=== PATIENT | female | born 1950 | race Caucasian/White ===

== ENCOUNTER → 2017-08-16 | Outpatient (CLI) | payer BC, MEDICARE | END | disposition home or self-care (01) | LOC: ECHO 12:41 | DX: I47.1 Supraventricular tachycardia (principal); R06.02 Shortness of breath | CPT/HCPCS: 93017; 93350 ==

== ENCOUNTER 2017-11-22 17:22 | Emergency (ER) | payer BC, MEDICARE ==
[~2017-11-22] VITALS: Ht 157.5 cm; Wt 71.7 kg
[~2017-11-22 17:22] MED LIST: ASPI325T8 PO; MULT1TAB52 PO
[2017-11-22 17:30] VITALS: BP 159/91
[2017-11-22] MEDS ORDERED: ADENOSINE 6 MG/2 ML VIAL. IV ONE (17:31)
--- NOTE | 2017-11-22 17:47 | PHYS DOC ---
Past Medical History Past Medical History: Arrhythmia Past Surgical History: Tonsillectomy Additional Past Surgical Histo: CARDIAC ABLATION Alcohol Use: Occasionally Drug Use: None Adult General Chief Complaint Chief Complaint: RAPID HEART RATE HPI HPI Patient is a 67 year old female who presents to the ER for evaluation tachycardia. Patient reports onset approximately 1400 today after drinking some tea. Patient reports history of SVT. Patient reports that she is status post ablation at [facility] in September. Patient presents isn't unwell. Patient reports episode of SVT earlier this month that resolved with 2 doses of Deputy Toprol. Patient reports onset today of tachycardia similar to previous Nicole SVT. Patient reports that she took a dose of metoprolol at 1415 and 1445. Patient reports persistent tachycardia presents to the ER. Patient has any chest pain, dizziness, nausea, vomiting. feels exactly like previous episodes of SVT. Review of Systems Review of Systems Constitutional: Denies fever or chills [] Eyes: Denies change in visual acuity, redness, or eye pain [] HENT: Denies nasal congestion or sore throat [] Respiratory: Denies cough or shortness of breath [] Cardiovascular: No additional information not addressed in HPI [] GI: Denies abdominal pain, nausea, vomiting, bloody stools or diarrhea [] : Denies dysuria or hematuria [] Musculoskeletal: Denies back pain or joint pain [] Integument: Denies rash or skin lesions [] Neurologic: Denies headache, focal weakness or sensory changes [] Endocrine: Denies polyuria or polydipsia [] All other systems were reviewed and found to be within normal limits, except as documented in this note. Current Medications Current Medications Current Medications Medications (Trade) Dose Ordered Sig/Norberto Start Time Stop Time Status Last Admin Dose Admin Adenosine (Adenocard) 6 mg STK-MED ONCE 11/22/17 17:31 11/22/17 17:33 DC Allergies Allergies Allergies Coded Allergies Type Severity Reaction Last Updated Verified No Known Drug Allergies 03/14/15 No Physical Exam Physical Exam Constitutional: Obese no acute distress, non-toxic appearance. [] HENT: Normocephalic, atraumatic, Eyes: PERRLA, EOMI, conjunctiva normal, no discharge. [] Neck: Normal range of motion, no tenderness, supple, no stridor. [] Cardiovascular tachycardia, strong bilateral radial pulses. Lungs & Thorax: Bilateral breath sounds clear to auscultation [] [] Skin: Warm, dry, no erythema, no rash. [] Back: No tenderness, no CVA tenderness. [] Extremities: No tenderness, no cyanosis, no clubbing, ROM intact, no edema. [] Neurologic: Alert and oriented X 3, no focal deficits noted. [] Psychologic: Affect normal, judgement normal, mood normal. [] Current Patient Data Vital Signs Vital Signs Date Time Temp Pulse Resp B/P (MAP) Pulse Ox O2 Delivery O2 Flow Rate FiO2 11/22/17 17:30 98.8 151 18 159/91 (113) 97 Room Air 98.8 EKG EKG #1: SVT rhythm, heart rate 150. #2: Normal sinus rhythm, heart rate 86, no significant ST segment changes. Radiology/Procedures Radiology/Procedures [] Course & Med Decision Making Course & Med Decision Making Pertinent Labs and Imaging studies reviewed. (See chart for details) []Patient with spontaneous resolution of SVT almost immediately after IV placement. Suspect patient vagaled during IV placement resulting in conversion. Patient now asymptomatic and wishing to be discharged. Patient does not desire any labs or continued evaluation. Advised patient to call Dr. Hunter tomorrow for continued evaluation and follow-up. Also advised patient to call the physician that performed her ablation. Dragon Disclaimer Dragon Disclaimer This electronic medical record was generated, in whole or in part, using a voice recognition dictation system. Departure Departure Impression: Primary Impression: Supraventricular tachycardia Disposition: 01 HOME, SELF-CARE Condition: IMPROVED Referrals: FRANCHESCA KRAMER MD (PCP) VITOR HUNTER MD Patient Instructions: Supraventricular Tachycardia Additional Instructions: Thank you for coming to [facility]. Please repeat the attached handouts. Please follow-up with your primary care physician. Return to the ER if your symptoms worsen or you have any other concerns. Call your speech and language clinician for follow-up appointment tomorrow. DEEPAK OWENS DO Nov 22, 2017 17:47
--- NOTE | 2017-11-23 04:16 | EKG ---
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
--- NOTE | 2017-11-23 04:16 | EKG ---
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
== END 2017-11-22 17:55 | disposition home or self-care (01) ==
LOC: ER 17:22
DX: I47.1 Supraventricular tachycardia (principal); E66.9 Obesity, unspecified; Z68.28 Body mass index [BMI] 28.0-28.9, adult; Z90.89 Acquired absence of other organs
CPT/HCPCS: 93005; 99284

== ENCOUNTER → 2017-12-25 | Outpatient (CLI) | payer BC ==
--- NOTE | 2017-12-25 11:51 | CARD ---
MR#: [id number] Date of Study: 12/25/2017 Ordering Physician: VITOR HUNTER, Referring Physician: VITOR HUNTER, Tech: APPROVED REPORT PROCEDURE: LOOP RECORDER IMPLANTATION Details: After appropriate informed consent, the patient was prepped and draped in usual steril fashion. The l eft parasternal area was infiltrated with 20 ml of lidocaine. Next, a 15 blade was used to make a 0.5 inch incision. A subcutaneous tunnel was created and the loop recorder was then implanted without di fficulty. One suture was placed to close the skin. Steristrips were placed and the patient tolerated the procedure well. [facility] Loop recorder: Confirm SN: [id number] <Conclusion> Successful implantation of a [facility] Loop Recorder for atrial fibrillation burden assessment. Signed by : Vitor Hunter, Electronically Approved : 12/25/2017 11:49:56
== END | disposition home or self-care (01) ==
LOC: LINQ 10:15
PROVIDERS: ATTEND Internal Medicine Cardiovascular Disease
DX: I48.91 Unspecified atrial fibrillation (principal)
CPT/HCPCS: 33282; C1764

== ENCOUNTER 2018-07-09 18:47 | Inpatient (IN) | payer MEDICARE, BC ==
[~2018-07-09] VITALS: Ht 157.5 cm; Wt 71.7 kg
[2018-07-09] MEDS ORDERED: ASPIRIN 325 MG TABLET PO ONE (19:00)
--- NOTE | 2018-07-09 19:20 | PHYS DOC ---
Past Medical History Past Medical History: A-Fib, Arrhythmia Past Surgical History: Tonsillectomy Additional Past Surgical Histo: CARDIAC ABLATION Alcohol Use: Occasionally Drug Use: None Adult General Chief Complaint Chief Complaint: CHEST PAIN HPI HPI Patient is a 67 year old female who presents with chest discomfort. Patient states that she was laying down watching television when she developed tightness located in her midsternal area associated with shortness of breath. Patient states that the pain lasted about twenty minutes and then subsided. Patient rates the pain to be 8/10 and denies radiation. Patient states that she checked her blood pressure at home and it was 181/90 which was alarming for her. Patient reports taking 325mg Aspirin prior to arrival. Patient denies having any chest pain upon arrival to the ED. Patient denies ever having any similar chest pain in the past. Patient reports a mild headache locating on the left side of her head. Patient notes that she has been experiencing rightness in the right side of her neck and right ear for the past few days for which she has an appointment with her primary care physician tomorrow. Denies recent travel. No history of blood clots in herself, however, her mother had a pulmonary embolism. Review of Systems Review of Systems Constitutional: Denies fever or chills. Eyes: Denies change in visual acuity or eye pain. HENT: Denies nasal congestion or sore throat. Respiratory: Denies cough. Reports shortness of breath. Cardiovascular: Reports chest pain. Denies palpitations. GI: Denies abdominal pain, nausea, vomiting,or diarrhea : Denies dysuria or hematuria Musculoskeletal: Denies back pain or joint pain Integument: Denies rash or skin lesions Neurologic: Denies focal weakness or sensory changes Complete systems were reviewed and found to be within normal limits, except as documented in this note. Current Medications Current Medications Current Medications Medications (Trade) Dose Ordered Sig/Norberto Start Time Stop Time Status Last Admin Dose Admin Aspirin (Olivia Aspirin) 325 mg 1X ONCE 07/09/18 19:00 07/09/18 19:08 DC Allergies Allergies Allergies Coded Allergies Type Severity Reaction Last Updated Verified No Known Drug Allergies 03/14/15 No Physical Exam Physical Exam Constitutional: Well developed, well nourished, no acute distress, non-toxic appearance. HENT: Normocephalic, atraumatic, bilateral external ears normal, oropharynx moist. Eyes: PERRL, EOMI, conjunctiva without erythema. Neck: Normal range of motion, no tenderness, supple. Cardiovascular:Heart rate regular rhythm, no murmur. Lungs & Thorax: Bilateral breath sounds clear to auscultation. Abdomen: Soft, no tenderness on palpation. Skin: Warm, dry, no rash. Back: No midline tenderness, no CVA tenderness. Extremities: No tenderness, ROM intact, no lower extremity edema. Neurologic: Alert and oriented X 3, normal motor function, normal sensory function, no focal deficits noted. Psychologic: Affect normal. Speech normal. Current Patient Data Vital Signs Vital Signs Date Time Temp Pulse Resp B/P (MAP) Pulse Ox O2 Delivery O2 Flow Rate FiO2 07/09/18 20:30 83 143/67 (92) 96 Room Air 07/09/18 19:30 24 07/09/18 18:52 98.4 98.4 Lab Values Laboratory Tests Test 07/09/18 19:20 White Blood Count 10.5 x10^3/uL (4.0-11.0) Red Blood Count 4.80 x10^6/uL (3.50-5.40) Hemoglobin 14.2 g/dL (12.0-15.5) Hematocrit 43.3 % (36.0-47.0) Mean Corpuscular Volume 90 fL (79-100) Mean Corpuscular Hemoglobin 30 pg (25-35) Mean Corpuscular Hemoglobin Concent 33 g/dL (31-37) Red Cell Distribution Width 13.2 % (11.5-14.5) Platelet Count 291 x10^3/uL (140-400) Neutrophils (%) (Auto) 49 % (31-73) Lymphocytes (%) (Auto) 41 % (24-48) Monocytes (%) (Auto) 7 % (0-9) Eosinophils (%) (Auto) 3 % (0-3) Basophils (%) (Auto) 1 % (0-3) Neutrophils # (Auto) 5.1 x10^3uL (1.8-7.7) Lymphocytes # (Auto) 4.3 x10^3/uL (1.0-4.8) Monocytes # (Auto) 0.7 x10^3/uL (0.0-1.1) Eosinophils # (Auto) 0.4 x10^3/uL (0.0-0.7) Basophils # (Auto) 0.1 x10^3/uL (0.0-0.2) Prothrombin Time 12.2 SEC (11.7-14.0) Prothrombin Time INR 0.9 (0.8-1.1) D-Dimer (Irina) 0.57 ug/mlFEU (0.00-0.50) H Sodium Level 143 mmol/L (136-145) Potassium Level 3.8 mmol/L (3.5-5.1) Chloride Level 104 mmol/L (98-107) Carbon Dioxide Level 25 mmol/L (21-32) Anion Gap 14 (6-14) Blood Urea Nitrogen 11 mg/dL (7-20) Creatinine 0.9 mg/dL (0.6-1.0) Estimated GFR (Cockcroft-Gault) 62.3 BUN/Creatinine Ratio 12 (6-20) Glucose Level 135 mg/dL (70-99) H Calcium Level 9.2 mg/dL (8.5-10.1) Magnesium Level 2.2 mg/dL (1.8-2.4) Total Bilirubin 0.2 mg/dL (0.2-1.0) Aspartate Amino Transferase (AST) 19 U/L (15-37) Alanine Aminotransferase (ALT) 22 U/L (14-59) Alkaline Phosphatase 114 U/L (46-116) Creatine Kinase 81 U/L (26-192) Creatine Kinase MB (Mass) 2.3 ng/mL (0.0-3.6) Creatine Kinase MB Relative Index 2.8 % (0-4) Troponin I Quantitative < 0.017 ng/mL (0.000-0.055) YA-Jwj-V-Type Natriuretic Peptide 60 pg/mL (0-124) Total Protein 7.6 g/dL (6.4-8.2) Albumin 3.8 g/dL (3.4-5.0) Albumin/Globulin Ratio 1.0 (1.0-1.7) Lipase 144 U/L (73-393) Laboratory Tests 07/09/18 19:20 Laboratory Tests 07/09/18 19:20 EKG EKG @2103 Sinus tachycardia at 111bpm, NO ST elevation @1853 Sinus tachycardia at 114bpm, NO ST elevation, occasional PVC Radiology/Procedures Radiology/Procedures [] Impressions: PROCEDURE: CHEST PA & LATERAL PROCEDURE: CHEST PA LATERAL CLINICAL INDICATION: Hypertension, CHEST PAIN COMPARISON: None FINDINGS: No pneumothorax identified. Cardiac and mediastinal contours unremarkable. No pulmonary consolidation or acute airspace disease. No acute osseous abnormalities identified. IMPRESSION: No pulmonary consolidation or acute airspace disease. PROCEDURE: CT ANGIOGRAPHY CHEST PQRS Compliance statement: One or more of the following individualized dose reduction techniques were utilized for this examination: 1. Automated exposure control. 2. Adjustment of the mA and/or kV according to patient size. 3. Use of iterative reconstruction technique. Indication:Chest pain, elevated D dimer, no priors, [id number] 90ml TECHNIQUE: CT angiogram of the chest with IV contrast with multiplanar MIP reformats. COMPARISON:None FINDINGS: Diagnostic quality PE study. There are no central, segmental or subsegmental filling defects in the pulmonary arteries. Heart is normal in size. No pericardial or pleural effusion. No enlarged axillary, mediastinal or hilar adenopathy. Visualized sections through the liver, spleen, gallbladder, pancreas, adrenals and kidneys within normal limits. Lungs are clear. No suspicious bony lesion. IMPRESSION: No PE. No pneumonia. Course & Med Decision Making Course & Med Decision Making Pertinent Labs and Imaging studies reviewed. (See chart for details) Patient is a 67 year old female who presents for evaluation of chest pain. D- dimer noted to be positive. CT angiography ordered. Dragon Disclaimer Dragon Disclaimer This electronic medical record was generated, in whole or in part, using a voice recognition dictation system. Departure Departure Impression: Primary Impression: Chest pain Additional Impression: Elevated d-dimer Disposition: 09 ADMITTED INPATIENT Admitting Physician: Franchesca Kramer Condition: STABLE Referrals: FRANCHESCA KRAMER MD (PCP) Problem Qualifiers Primary Impression: Chest pain Chest pain type: unspecified Qualified Codes: R07.9 - Chest pain, unspecified DYERPALAK DO Jul 09, 2018 19:20
--- NOTE | 2018-07-09 19:21 | RAD ---
PROCEDURE: CHEST PA LATERAL CLINICAL INDICATION: Hypertension, CHEST PAIN COMPARISON: None FINDINGS: No pneumothorax identified. Cardiac and mediastinal contours unremarkable. No pulmonary consolidation or acute airspace disease. No acute osseous abnormalities identified. IMPRESSION: No pulmonary consolidation or acute airspace disease. Electronically signed by: Ming Platt DO (07/09/2018 7:18 PM) [facility]
[2018-07-09 19:34] LABS: BASO # 0.1 x10^3/uL (0.0-0.2); BASO % 1 % (0-3); EOS # 0.4 x10^3/uL (0.0-0.7); EOS % 3 % (0-3); HEMATOCRIT 43.3 % (36.0-47.0); HEMOGLOBIN 14.2 g/dL (12.0-15.5); LYMPH # 4.3 x10^3/uL (1.0-4.8); LYMPH % 41 % (24-48); MEAN CORPUSCULAR HEMOGLOBIN 30 pg (25-35); MEAN CORPUSCULAR HGB CONC 33 g/dL (31-37); MEAN CORPUSCULAR VOLUME 90 fL (79-100); MONO # 0.7 x10^3/uL (0.0-1.1); MONO % 7 % (0-9); NEUT # 5.1 x10^3uL (1.8-7.7); NEUT % 49 % (31-73); PLATELET COUNT 291 x10^3/uL (140-400); RED CELL DISTRIBUTION WIDTH 13.2 % (11.5-14.5); WHITE BLOOD COUNT 10.5 x10^3/uL (4.0-11.0)
[2018-07-09 19:39] LABS: PROTHROMBIN TIME PATIENT 12.2 SEC (11.7-14.0)
[2018-07-09 19:45] LABS: CALCIUM 9.2 mg/dL (8.5-10.1); CREATININE 0.9 mg/dL (0.6-1.0); GFR 62.3; POTASSIUM 3.8 mmol/L (3.5-5.1)
[2018-07-09 19:51] LABS: ALBUMIN 3.8 g/dL (3.4-5.0); MAGNESIUM 2.2 mg/dL (1.8-2.4); TOTAL BILIRUBIN 0.2 mg/dL (0.2-1.0); TOTAL PROTEIN 7.6 g/dL (6.4-8.2)
[2018-07-09] MEDS ORDERED: CONTRAST GIVEN. MC PRN (21:00)
[2018-07-09] MEDS ORDERED: IOHEXOL 350 MG/ML 100 ML VIAL. IV ONE (21:00)
[2018-07-09] MEDS ORDERED: ONDANSETRON PF 4 MG/2 ML VIAL. IV PRN (21:00)
[2018-07-09] MEDS ORDERED: fentaNYL PF VIAL 100 MCG/2 ML VIAL IV PRN (21:00)
--- NOTE | 2018-07-09 21:27 | RAD ---
PQRS Compliance statement: One or more of the following individualized dose reduction techniques were utilized for this examination: 1. Automated exposure control. 2. Adjustment of the mA and/or kV according to patient size. 3. Use of iterative reconstruction technique. Indication:Chest pain, elevated D dimer, no priors, [id number] 90ml TECHNIQUE: CT angiogram of the chest with IV contrast with multiplanar MIP reformats. COMPARISON:None FINDINGS: Diagnostic quality PE study. There are no central, segmental or subsegmental filling defects in the pulmonary arteries. Heart is normal in size. No pericardial or pleural effusion. No enlarged axillary, mediastinal or hilar adenopathy. Visualized sections through the liver, spleen, gallbladder, pancreas, adrenals and kidneys within normal limits. Lungs are clear. No suspicious bony lesion. IMPRESSION: No PE. No pneumonia. Electronically signed by: Ming Platt DO (07/09/2018 9:24 PM) [facility]
[2018-07-09 22:13] VITALS: BP 147/70
[2018-07-10] MEDS ORDERED: METO25TA4 PO (00:12)
[2018-07-10 03:13] VITALS: BP 121/58
[2018-07-10 07:54] VITALS: BP 135/70
--- NOTE | 2018-07-10 07:55 | EKG ---
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
--- NOTE | 2018-07-10 07:57 | EKG ---
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
--- NOTE | 2018-07-10 08:46 | PDOC ---
GENERAL General: see dictated H&P. VITAL SIGNS Vital Signs: Vital Signs Date Time Temp Pulse Resp B/P (MAP) Pulse Ox O2 Delivery O2 Flow Rate FiO2 07/10/18 07:54 98.0 75 18 135/70 (91) 95 Room Air 98.0 I & O I & O Intake and Output 07/10/18 07:00 Intake Total 100 ml Output Total 400 ml Balance -300 ml Intake Oral 100 ml Output Urine Total 400 ml ALLERGIES Allergies: Allergies Coded Allergies Type Severity Reaction Last Updated Verified No Known Drug Allergies 03/14/15 No MEDS Medications: Current Medications Medications (Trade) Dose Ordered Sig/Norberto Start Time Stop Time Status Last Admin Dose Admin Aspirin (Olivia Aspirin) 325 mg 1X ONCE 07/09/18 19:00 07/09/18 19:08 DC Fentanyl Citrate (Fentanyl 2ml Vial) 50 mcg PRN Q2HRS PRN 07/09/18 21:00 Info (CONTRAST GIVEN -- Rx MONITORING) 1 each PRN DAILY PRN 07/09/18 21:00 07/11/18 20:59 Iohexol (Omnipaque 350 Mg/ml) 90 ml 1X ONCE 07/09/18 21:00 07/09/18 21:01 DC 07/09/18 21:14 90 ML Ondansetron HCl (Zofran) 4 mg PRN Q8HRS PRN 07/09/18 21:00 07/10/18 20:59 LAB Lab: Laboratory Tests Test 07/09/18 19:20 07/09/18 21:25 07/09/18 23:50 07/10/18 02:55 White Blood Count 10.5 x10^3/uL (4.0-11.0) Red Blood Count 4.80 x10^6/uL (3.50-5.40) Hemoglobin 14.2 g/dL (12.0-15.5) Hematocrit 43.3 % (36.0-47.0) Mean Corpuscular Volume 90 fL (79-100) Mean Corpuscular Hemoglobin 30 pg (25-35) Mean Corpuscular Hemoglobin Concent 33 g/dL (31-37) Red Cell Distribution Width 13.2 % (11.5-14.5) Platelet Count 291 x10^3/uL (140-400) Neutrophils (%) (Auto) 49 % (31-73) Lymphocytes (%) (Auto) 41 % (24-48) Monocytes (%) (Auto) 7 % (0-9) Eosinophils (%) (Auto) 3 % (0-3) Basophils (%) (Auto) 1 % (0-3) Neutrophils # (Auto) 5.1 x10^3uL (1.8-7.7) Lymphocytes # (Auto) 4.3 x10^3/uL (1.0-4.8) Monocytes # (Auto) 0.7 x10^3/uL (0.0-1.1) Eosinophils # (Auto) 0.4 x10^3/uL (0.0-0.7) Basophils # (Auto) 0.1 x10^3/uL (0.0-0.2) Prothrombin Time 12.2 SEC (11.7-14.0) Prothromb Time International Ratio 0.9 (0.8-1.1) D-Dimer (Irina) 0.57 ug/mlFEU (0.00-0.50) Sodium Level 143 mmol/L (136-145) Potassium Level 3.8 mmol/L (3.5-5.1) Chloride Level 104 mmol/L (98-107) Carbon Dioxide Level 25 mmol/L (21-32) Anion Gap 14 (6-14) Blood Urea Nitrogen 11 mg/dL (7-20) Creatinine 0.9 mg/dL (0.6-1.0) Estimated GFR (Cockcroft-Gault) 62.3 BUN/Creatinine Ratio 12 (6-20) Glucose Level 135 mg/dL (70-99) Calcium Level 9.2 mg/dL (8.5-10.1) Magnesium Level 2.2 mg/dL (1.8-2.4) Total Bilirubin 0.2 mg/dL (0.2-1.0) Aspartate Amino Transf (AST/SGOT) 19 U/L (15-37) Alanine Aminotransferase (ALT/SGPT) 22 U/L (14-59) Alkaline Phosphatase 114 U/L (46-116) Creatine Kinase 81 U/L (26-192) Creatine Kinase MB (Mass) 2.3 ng/mL (0.0-3.6) Creatine Kinase MB Relative Index 2.8 % (0-4) Troponin I Quantitative < 0.017 ng/mL (0.000-0.055) < 0.017 ng/mL (0.000-0.055) < 0.017 ng/mL (0.000-0.055) < 0.017 ng/mL (0.000-0.055) AP-Gwi-V-Type Natriuretic Peptide 60 pg/mL (0-124) Total Protein 7.6 g/dL (6.4-8.2) Albumin 3.8 g/dL (3.4-5.0) Albumin/Globulin Ratio 1.0 (1.0-1.7) Lipase 144 U/L (73-393) FRANCHESCA KRAMER MD Jul 10, 2018 08:46
--- NOTE | 2018-07-10 09:04 | HP ---
ADMIT DATE: 07/09/2018 CHIEF COMPLAINT AND HISTORY OF PRESENT ILLNESS: This 67-year-old white female is well known to me from followup in the office. The onset of substernal chest discomfort on the evening of admission while lying in a yacht watching television. She had eaten about 3 hours earlier. There was no associated shortness of breath, sweatiness, nausea, but she did get somewhat lightheaded with it. It lasted approximately 20 minutes. She has had several more episodes of that overnight after admission. Blood pressure was elevated when she took it at home, bringing her to the Emergency Room where she was admitted to rule out cardiac etiology. She does have a past medical history of atrial fibrillation with at least 2 ablations. She also has a history of a tonsillectomy. MEDICATIONS: Brought with the patient, listed on the computer and have been addressed. ALLERGIES: She has no known drug allergies. SOCIAL HISTORY: She is nonsmoker, occasional alcohol, does not use drugs. FAMILY HISTORY: Noncontributory. REVIEW OF SYSTEMS: As mentioned above. PHYSICAL EXAMINATION: GENERAL: She is well-developed, well-nourished white female, in no acute distress. VITAL SIGNS: Stable. She is afebrile. Blood pressures have normalized after initial presentation. HEAD, EYES, EARS, NOSE AND THROAT: Unremarkable. NECK: Supple, without lymphadenopathy or thyromegaly. CHEST: Clear to auscultation and percussion. HEART: Regular rate and rhythm without S3, S4, or murmur. ABDOMEN: Soft, nontender, without hepatosplenomegaly or masses. EXTREMITIES: Without cyanosis, clubbing, edema. NEUROLOGIC: She is intact. LABORATORY DATA: Initial labs included a CBC that is unremarkable. Troponin x 4 that was unremarkable. Blood sugar was elevated on admission at 135. D-dimer was slightly elevated at 0.57 and CTA of the chest and chest x-ray are normal. IMPRESSION: Chest pain, the patient with a history of atrial fibrillation. PLAN: The patient is admitted. Cardiology was consulted. At this point, we will wait for further direction from them. Her last stress testing was done in what sounds like last spring and was within normal limits at that point in time. FRANCHESCA KRAMER MD DR: LUIS/adeel JOB#: [id number] / [id number]
[2018-07-10] MEDS: METOPROLOL TART IMMED RELEASE 25 MG TABLET. PO SCH (09:31)
--- NOTE | 2018-07-10 10:07 | PDOC2 ---
APRIL MCDUFFIE PHARMACY INFORMATICS MANAGER 07/10/18 1007: CARDIAC CONSULT DATE OF CONSULT Date of Consult DATE: 07/10/18 TIME: 09:07 REASON FOR CONSULT Reason for Consult: Chest pain REFERRING PHYSICIAN Referring Physician: Dr. Rodgers SOURCE Source: Chart review, Patient HISTORY OF PRESENT ILLNESS HISTORY OF PRESENT ILLNESS This is a 67 yo female, with a history of PSVT s/p ablation, who presented secondary to chest pain, palpitations. Patient reports she was watch television last night around 6 pm and had a sudden onset of central chest pressure and palpitations. [place] as is heart rate was very fast. Had pressure in her left neck and left. [place] flush. Was slightly short of breath. Check blood pressure, was 183/90. HR 146. Symptoms lasted about 20 minutes and resolved without intervention. Is on metoprolol at home for rate control. Has been complaint with this. No recent fevers or illness. No other reports of chest pain, dizziness, diaphoresis, or nausea/vomiting. Did have two brief episode of SVT noted on telemetry overnight- patient does report feeling her heart race a couple times overnight. PAST MEDICAL HISTORY Cardiovascular: AFIB, Hyperlipidemia, Other (SVT- AVNRT) Pulmonary: No pertinent hx CENTRAL NERVOUS SYSTEM: Other (no pertinent hx) GI: No pertinent hx Heme/Onc: No pertinent hx Hepatobiliary: No pertinent hx Psych: No pertinent hx Musculoskeletal: Osteoarthritis Rheumatologic: No pertinent hx Infectious disease: No pertinent hx ENT: No pertinent hx Renal/: No pertinent hx Endocrine: No pertinent hx Dermatology: No pertinent hx PAST SURGICAL HISTORY Past Surgical History: Other (RF ablation, [facility] [facility] loop recorder) FAMILY HISTORY Family History: Diabetes SOCIAL HISTORY Smoke: No ALCOHOL: none Drugs: None Lives: with Family CURRENT MEDICATIONS CURRENT MEDICATIONS Current Medications Medications (Trade) Dose Ordered Sig/Norberto Route PRN Reason Start Time Stop Time Status Last Admin Dose Admin Iohexol (Omnipaque 350 Mg/ml) 90 ml 1X ONCE IV 07/09/18 21:00 07/09/18 21:01 DC 07/09/18 21:14 ALLERGIES ALLERGIES: Coded Allergies: No Known Drug Allergies (Unverified , 03/14/15) ROS Review of System 14 point ROS conducted with pertinent positives noted above in HPI. PHYSICAL EXAM General: Alert, Oriented X3, Cooperative, No acute distress HEENT: Atraumatic, Mucous membr. moist/pink Lungs: Clear to auscultation, Normal air movement Heart: Regular rate, Normal S1, Normal S2 Abdomen: Soft, No tenderness Extremities: No edema Skin: No breakdown, No significant lesion Neuro: Normal speech, Sensation intact Psych/Mental Status: Mental status NL, Mood NL MUSCULOSKELETAL: Osteoarthritic changes both hands VITALS VITALS Vital Signs Date Time Temp Pulse Resp B/P (MAP) Pulse Ox O2 Delivery O2 Flow Rate FiO2 07/10/18 08:00 Room Air 07/10/18 07:54 98.0 75 18 135/70 (91) 95 98.0 LABS Lab: Laboratory Tests Test 07/09/18 19:20 07/09/18 21:25 07/09/18 23:50 07/10/18 02:55 White Blood Count 10.5 x10^3/uL (4.0-11.0) Red Blood Count 4.80 x10^6/uL (3.50-5.40) Hemoglobin 14.2 g/dL (12.0-15.5) Hematocrit 43.3 % (36.0-47.0) Mean Corpuscular Volume 90 fL (79-100) Mean Corpuscular Hemoglobin 30 pg (25-35) Mean Corpuscular Hemoglobin Concent 33 g/dL (31-37) Red Cell Distribution Width 13.2 % (11.5-14.5) Platelet Count 291 x10^3/uL (140-400) Neutrophils (%) (Auto) 49 % (31-73) Lymphocytes (%) (Auto) 41 % (24-48) Monocytes (%) (Auto) 7 % (0-9) Eosinophils (%) (Auto) 3 % (0-3) Basophils (%) (Auto) 1 % (0-3) Neutrophils # (Auto) 5.1 x10^3uL (1.8-7.7) Lymphocytes # (Auto) 4.3 x10^3/uL (1.0-4.8) Monocytes # (Auto) 0.7 x10^3/uL (0.0-1.1) Eosinophils # (Auto) 0.4 x10^3/uL (0.0-0.7) Basophils # (Auto) 0.1 x10^3/uL (0.0-0.2) Prothrombin Time 12.2 SEC (11.7-14.0) Prothromb Time International Ratio 0.9 (0.8-1.1) D-Dimer (Irina) 0.57 ug/mlFEU (0.00-0.50) Sodium Level 143 mmol/L (136-145) Potassium Level 3.8 mmol/L (3.5-5.1) Chloride Level 104 mmol/L (98-107) Carbon Dioxide Level 25 mmol/L (21-32) Anion Gap 14 (6-14) Blood Urea Nitrogen 11 mg/dL (7-20) Creatinine 0.9 mg/dL (0.6-1.0) Estimated GFR (Cockcroft-Gault) 62.3 BUN/Creatinine Ratio 12 (6-20) Glucose Level 135 mg/dL (70-99) Calcium Level 9.2 mg/dL (8.5-10.1) Magnesium Level 2.2 mg/dL (1.8-2.4) Total Bilirubin 0.2 mg/dL (0.2-1.0) Aspartate Amino Transf (AST/SGOT) 19 U/L (15-37) Alanine Aminotransferase (ALT/SGPT) 22 U/L (14-59) Alkaline Phosphatase 114 U/L (46-116) Creatine Kinase 81 U/L (26-192) Creatine Kinase MB (Mass) 2.3 ng/mL (0.0-3.6) Creatine Kinase MB Relative Index 2.8 % (0-4) Troponin I Quantitative < 0.017 ng/mL (0.000-0.055) < 0.017 ng/mL (0.000-0.055) < 0.017 ng/mL (0.000-0.055) < 0.017 ng/mL (0.000-0.055) YK-Gli-J-Type Natriuretic Peptide 60 pg/mL (0-124) Total Protein 7.6 g/dL (6.4-8.2) Albumin 3.8 g/dL (3.4-5.0) Albumin/Globulin Ratio 1.0 (1.0-1.7) Lipase 144 U/L (73-393) ECHOCARDIOGRAM ECHOCARDIOGRAM Stress Echocardiogram <Conclusion> Good exercise capacity at 10.1 Mets achieved. Abnormal EKG response with SVT and inferolateral ST segment depression Normal resting and stress wall motion and EF with appropriate augmentation. Low to moderate risk study DATE: 08/16/17 1427 ASSESSMENT/PLAN ASSESSMENT/PLAN 1. Chest pain, palpitations/ AMI ruled out. Most probably related to #2 2. PSVT s/p ablation x2 with most recent 09/2017. EKG with ST. Two episodes of SVT noted overnight on telemetry. On metoprolol for rate control 3. PAFIB; presently SR 4. Loop recorder implant ([facility] [facility]) 5. Hypertension 6. Hyperlipidemia Recommendations Loop recorder interrogation Resume metoprolol at present dose. Add flecainide for rhythm maintenance Resume ASA. RASHI, TSH, lipid panel VITOR HUNTER MD 07/10/18 1833: CARDIAC CONSULT ASSESSMENT/PLAN ASSESSMENT/PLAN Pt. seen and examined. Agree with above RECREATIONAL LEADER note. 67 y.o w/ SVT s/p prior ablation after ablation in september, she had one episode of SVT and started Metoprolol, now second recurrence. SVT last night. Will add flecainide. Echo wnl. trop negative. CTA normal If recurrence on metop and flecainide, may need a repeat ablation Discussed with patient. Thanks. Ok to DC home today or tomorrow. APRIL MCDUFFIE APRN Jul 10, 2018 10:07 VITOR HUNTER MD Jul 10, 2018 18:33
[2018-07-10 10:17] LABS: CHOLESTEROL/HDL RATIO 5.4
[2018-07-10] MEDS: FLECAINIDE ACETATE 50 MG TABLET. PO SCH ×2 (10:39→21:10)
[2018-07-10] MEDS: ASPIRIN ENTERIC COATED 81 MG TABLET.DR. PO SCH (10:39)
[2018-07-10 10:55] VITALS: BP 115/57
--- NOTE | 2018-07-10 11:25 | CARD ---
MR#: [id number] Date of Study: 07/10/2018 Ordering Physician: APRIL MCDUFFIE, Referring Physician: FRANCHESCA KRAMER Tech: Lila Verdugo [facility] APPROVED REPORT EXAM: Two-dimensional and M-mode echocardiogram with Doppler and color Doppler. Other Information Quality : GoodHR: 80bpm Rhythm : NSR INDICATION Chest Pain Surgery/Intervention Ablation 2D DIMENSIONS RVDd3.4 (2.9-3.5cm)Left Atrium(2D)3.5 (1.6-4.0cm) IVSd1.0 (0.7-1.1cm)Aortic Root(2D)2.8 (2.0-3.7cm) LVDd4.6 (3.9-5.9cm)LVOT Diameter1.9 (1.8-2.4cm) PWd0.9 (0.7-1.1cm)LVDs3.0 (2.5-4.0cm) FS (%) 35.0 %SV61.3 ml LVEF(%)64.4 (>50%) M-Mode DIMENSIONS Left Atrium(MM)3.28 (2.5-4.0cm)Aortic Root2.98 (2.2-3.7cm) Aortic Valve AoV Peak Michael.133.6cm/sAoV VTI33.1cm AO Peak GR.7.1mmHgLVOT Peak Michael.98.3cm/s AO Mean GR.4mmHgAVA (VMAX)2.15cm2 KHOA (VTI)2.20cm2 Mitral Valve MV E Ggzepmju15.7cm/sMV DECEL KDJP956lw MV A Mokhejgf358.1cm/sE/A Ratio0.7 MV A Syztjmcy874mp Pulmonary Valve PV Peak Qvyiovuo48.4cm/s Tricuspid Valve TR P. Qxbqunnv238di/sRAP IZQBQLFT1kjKw TR Peak Gr.18jlEoOQOW89zlOm LEFT VENTRICLE The left ventricle is normal size. There is normal left ventricular wall thickness. The left ventricu lar systolic function is normal and the ejection fraction is within normal range. The Ejection Fracti on is 60-65%. There is normal LV segmental wall motion. Transmitral Doppler flow pattern is Grade I-a bnormal relaxation pattern. RIGHT VENTRICLE The right ventricle is normal size. There is normal right ventricular wall thickness. The right ventr icular systolic function is normal. ATRIA The left atrium size is normal. The right atrium size is normal. The interatrial septum is intact wit h no evidence for an atrial septal defect or patent foramen ovale as noted on 2-D or Doppler imaging. AORTIC VALVE The aortic valve is calcified but opens well. The aortic valve is trileaflet. Doppler and Color Flow revealed no significant aortic regurgitation. There is no significant aortic valvular stenosis. There is no aortic valvular vegetation. MITRAL VALVE The mitral valve is normal in structure and function. There is no evidence of mitral valve prolapse. There is no mitral valve stenosis. Doppler and Color Flow revealed no mitral valve regurgitation note d. TRICUSPID VALVE The tricuspid valve is normal in structure and function. Doppler and Color Flow revealed mild tricusp id regurgitation. The PA pressure was estimated at 36 mmHg. There is no tricuspid valve prolapse or v egetation. There is no tricuspid valve stenosis. PULMONIC VALVE The pulmonary valve is normal in structure and function. Doppler and Color Flow revealed trace pulmon ic valvular regurgitation. There is no pulmonic valvular stenosis. GREAT VESSELS The aortic root is normal in size. The ascending aorta is normal in size. The IVC is normal in size a nd collapses >50% with inspiration. PERICARDIAL EFFUSION There is a trace pericardial effusion with no hemodynamic significance. Critical Notification Critical Value: No <Conclusion> The left ventricle is normal size. The left ventricular systolic function is normal and the ejection fraction is within normal range. The Ejection Fraction is 60-65%. There is no significant aortic valvular stenosis. Doppler and Color Flow revealed no significant aortic regurgitation. Doppler and Color Flow revealed no mitral valve regurgitation noted. Doppler and Color Flow revealed mild tricuspid regurgitation. The PA pressure was estimated at 36 mmHg. There is a trace pericardial effusion with no hemodynamic significance. Signed by : Aniceto Cooper MD Electronically Approved : 07/10/2018 11:24:50
[2018-07-10 14:54] VITALS: BP 112/55
--- NOTE | 2018-07-10 14:55 | NUR ---
SS following for discharge planning. Pt is from home and is currently on room air. No discharge needs noted at this time. SS will continue to follow for discharge planning.
[2018-07-10 19:47] VITALS: BP 112/55
[2018-07-10 22:39] VITALS: BP 113/61
[2018-07-11 03:36] VITALS: BP 133/63
[2018-07-11 07:00] VITALS: BP 132/61
[2018-07-11] MEDS ORDERED: FLEC50TA PO (08:36)
[2018-07-11] MEDS ORDERED: ASPI-612 PO (08:36)
[2018-07-11] MEDS ORDERED: ATOR40TA PO (08:36)
[2018-07-11 10:06] VITALS: BP 110/63
[2018-07-11] MEDS: ASPIRIN ENTERIC COATED 81 MG TABLET.DR. PO SCH (10:07)
[2018-07-11] MEDS: FLECAINIDE ACETATE 50 MG TABLET. PO SCH (10:07)
[2018-07-11 10:08] VITALS: BP 110/63
[2018-07-11] MEDS: METOPROLOL TART IMMED RELEASE 25 MG TABLET. PO SCH (10:08)
--- NOTE | 2018-07-11 11:00 | PDOC ---
CARDIO Progress Notes Date and Time Date of Service 07/11/18 Time of Evaluation 1015 Subjective Subjective: No Chest Pain, No shortness of breath, No Palpitations Vitals Vitals Vital Signs Date Time Temp Pulse Resp B/P (MAP) Pulse Ox O2 Delivery O2 Flow Rate FiO2 07/11/18 10:08 61 110/63 07/11/18 07:00 98.2 18 95 Room Air 98.2 Weight Weight [ ] Input and Output Intake and Output Intake and Output 07/11/18 07:00 Intake Total 600 ml Balance 600 ml Intake Oral 600 ml # Voids 6 Physical Exam HEENT: Neck Supple W Full Motion Chest: Symmetric LUNGS: Clear to Auscultation Heart: S1S2, RRR Abdomen: Soft N/T Extremities: No Edema Neurology: alert, oriented, follow commands Assessment Assessment 1. PSVT; no further tachyarrhythmias overnight. 2. Loop recorder implant ([facility] [facility]); interrogation without acute events, but high detection rate at 160. 5. Hypertension 6. Hyperlipidemia Recommendations Metoprolol and flecainide for rhythm/rate control If further recurrence of SVT, consider for repeat ablation May discharge from a CV standpoint and f/u in our office as scheduled with APRIL Duque APRN Jul 11, 2018 11:00
--- NOTE | 2018-07-11 11:40 | NUR ---
Discharge Note: RUCHI MARRUFO [address] [place] [address] Discharge instructions and discharge home medications reviewed with patient and a copy given. All questions have been answered and understanding verbalized. The following instructions and handouts were given: SVT, new medication handouts for flecainide, aspirin, lipitor Discontinued lines and drains: Right A/C Patient discharged to home with partner via wheelchair.
--- NOTE | 2018-07-11 12:46 | DS ---
DATE OF DISCHARGE: 07/11/2018 PRIMARY DIAGNOSIS: Supraventricular tachycardia with chest pain. ADDITIONAL DIAGNOSIS: Hyperlipidemia. CHIEF COMPLAINT AND HISTORY OF PRESENT ILLNESS: This 67-year-old white female is well known to me from followup in the office. The patient had the onset of substernal chest discomfort on the evening of admission while lying on a couch watching television. She had eaten about 3 hours earlier. There was no associated shortness of breath, sweatiness or nausea, but she did get lightheaded with it. It lasted approximately 20 minutes. She had had several more episodes of it later in the evening. Blood pressure was elevated when she took it and as was pulse in the 140s. She was admitted to rule out heart etiology with likely SVT as a culprit. SUMMARY OF STAY: The patient was admitted. Cardiology was consulted. Troponins times at least 4 were negative. Echocardiogram showed no significant abnormalities. She remained pretty much asymptomatic during the stay. She has a loop recorder in and it was found that, I guess, one interrogation saying that it was only set at a rate of 165 or higher to sense and was adjusted during the stay to go at lower levels. Flecainide was added to her regimen by Cardiology. Lipid profile was checked during the stay and LDL was high at 147 and Lipitor will be started for the same. DISPOSITION: The patient is discharged to home, regular diet, activity as tolerated, office next week. DISCHARGE MEDICATIONS: Listed on the med rec and have been addressed. FRANCHESCA KRAMER MD DR: LUIS/adeel JOB#: [id number] / [id number]
== END 2018-07-11 10:20 | disposition home or self-care (01) | DRG 309 ==
LOC: ER 18:47 → 2 SOUTH 20:58
PROVIDERS: ADMIT Family Medicine; ATTEND Family Medicine
DX: I47.1 Supraventricular tachycardia (principal); R65.10 Systemic inflammatory response syndrome (SIRS) of non-infectious origin without acute organ dysfunction; I48.91 Unspecified atrial fibrillation; E78.5 Hyperlipidemia, unspecified; I10 Essential (primary) hypertension; R79.1 Abnormal coagulation profile; Z83.3 Family history of diabetes mellitus; M19.90 Unspecified osteoarthritis, unspecified site; Z79.899 Other long term (current) drug therapy; Z90.49 Acquired absence of other specified parts of digestive tract; Z95.818 Presence of other cardiac implants and grafts
CPT/HCPCS: 36415; 71046; 71275; 80053; 80061; 82553; 83690; 83735; 83880; 84443; 84484; 85025; 85379; 85610; 93005; 93306; Q9967; 99285-25

== ENCOUNTER 2018-07-16 04:13 | Emergency (ER) | payer BC, MEDICARE ==
[~2018-07-16] VITALS: Ht 157.5 cm; Wt 70.3 kg
[~2018-07-16 04:13] MED LIST changes: +ASPI-612 PO; +ATOR40TA PO; +FLEC50TA PO; +METO25TA4 PO
--- NOTE | 2018-07-16 05:03 | PHYS DOC ---
Past Medical History Past Medical History: A-Fib, Arrhythmia Past Surgical History: Tonsillectomy, Other Additional Past Surgical Histo: CARDIAC ABLATION, LOOP RECORDER Alcohol Use: Occasionally Drug Use: None Adult General Chief Complaint Chief Complaint: CHEST PAIN HPI HPI She is a 67-year-old female who woke up this morning with headache and felt that it was related to her blood pressure. She checked her blood pressure 1:37 AM and it was elevated. She checked it multiple times after that and it kept going up. She states she was seen in the emergency department in the last week or so because of the same thing and had a cardiac workup which was unrevealing. Patient denies any symptoms at this time. Patient states she took 2 extra metoprolol when she checked her blood pressure.[] Review of Systems Review of Systems Constitutional: Denies fever or chills [] Eyes: Denies change in visual acuity, redness, or eye pain [] HENT: Denies nasal congestion or sore throat [] Respiratory: Denies cough or shortness of breath [] Cardiovascular: No additional information not addressed in HPI [] GI: Denies abdominal pain, nausea, vomiting, bloody stools or diarrhea [] : Denies dysuria or hematuria [] Musculoskeletal: Denies back pain or joint pain [] Integument: Denies rash or skin lesions [] Neurologic: Per history of present illness[] Endocrine: Denies polyuria or polydipsia [] All other systems were reviewed and found to be within normal limits, except as documented in this note. Allergies Allergies Allergies Coded Allergies Type Severity Reaction Last Updated Verified No Known Drug Allergies 03/14/15 No Physical Exam Physical Exam Constitutional: Well developed, well nourished, no acute distress, non-toxic appearance. [] HENT: Normocephalic, atraumatic, bilateral external ears normal, oropharynx moist, no oral exudates, nose normal. [] Eyes: PERRLA, EOMI, conjunctiva normal, no discharge. [] Neck: Normal range of motion, no tenderness, supple, no stridor. [] Cardiovascular:Heart rate regular rhythm, no murmur [] Lungs & Thorax: Bilateral breath sounds clear to auscultation [] Abdomen: Bowel sounds normal, soft, no tenderness, no masses, no pulsatile masses. [] Skin: Warm, dry, no erythema, no rash. [] Back: No tenderness, no CVA tenderness. [] Extremities: No tenderness, no cyanosis, no clubbing, ROM intact, no edema. [] Neurologic: Alert and oriented X 3, normal motor function, normal sensory function, no focal deficits noted. [] Psychologic: Very anxious[] Current Patient Data Vital Signs Vital Signs Date Time Temp Pulse Resp B/P (MAP) Pulse Ox O2 Delivery O2 Flow Rate FiO2 07/16/18 04:20 98.4 64 20 183/79 (113) 95 Room Air 98.4 EKG EKG [] Interpretation Time: EKG: Normal sinus rhythm rate of [address]-T changes no change from previous EKG Radiology/Procedures Radiology/Procedures [] Course & Med Decision Making Course & Med Decision Making Pertinent Labs and Imaging studies reviewed. (See chart for details) [ED course: Evaluation reveals an anxious 67-year-old female in no distress. I believe that her symptoms are related to anxiety around blood pressure. I've encouraged her to follow with her primary care physician to discuss this at length. I did explain the perils of checking her blood pressure over an over throughout the night. Patient seemed to understand and will follow with her outpatient physician.] Dragon Disclaimer Dragon Disclaimer This electronic medical record was generated, in whole or in part, using a voice recognition dictation system. 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 Hamm this week for recheck. Problem Qualifiers Primary Impression: Hypertension Hypertension type: essential hypertension Qualified Codes: I10 - Essential ( primary) hypertension GOLDENLUBA Zaria CALZADA Jul 16, 2018 05:03
[2018-07-16 05:15] VITALS: BP 149/68
--- NOTE | 2018-07-16 07:30 | EKG ---
[facility] [address] [place] [address] Test Date: 2018-07-16 Test Time: 04:23:56 Pat Name: RUCHI MARRUFO Department: Room: Gender: F Reinforced Concrete Inspector: CONCHITA : 1950 Requested By: LUBA FRANKS Order Number: [id number] Reading MD: Louie Fletcher MD Measurements Intervals [place] Rate: 62 P: 47 SC: 190 QRS: 17 QRSD: 88 T: 68 QT: 394 QTc: 402 Interpretive Statements SINUS RHYTHM NON-SPECIFIC ST/T CHANGES Electronically Signed On 07-18-2018 10:07:11 CDT by Louie Fletcher MD
== END 2018-07-16 05:16 | disposition home or self-care (01) ==
LOC: ER 04:13
DX: I10 Essential (primary) hypertension (principal); F06.4 Anxiety disorder due to known physiological condition; R51 Headache; I48.91 Unspecified atrial fibrillation; Z90.89 Acquired absence of other organs
CPT/HCPCS: 93005; 99284

== ENCOUNTER → 2019-02-28 | Outpatient (CLI) | payer BC ==
[2019-02-28 08:35] LABS: CHOLESTEROL/HDL RATIO 2.6
== END | disposition home or self-care (01) ==
LOC: LAB 08:01
PROVIDERS: ATTEND Internal Medicine Cardiovascular Disease
DX: E78.5 Hyperlipidemia, unspecified (principal)
CPT/HCPCS: 36415; 80061; 83721

== ENCOUNTER 2019-05-04 10:35 | Inpatient (IN) | payer MEDICARE, BC ==
[~2019-05-04] VITALS: Ht 157.5 cm; Wt 73.2 kg
[2019-05-04] MEDS ORDERED: IV NORMAL SALINE 1000ML BAG 1,000 ML IV ONE (11:30)
[2019-05-04 11:32] LABS: BILIRUBIN,URINE NEGATIVE (NEG); CLARITY,URINE CLEAR; COLOR,URINE YELLOW; NITRITE,URINE NEGATIVE (NEG); PROTEIN,URINE NEGATIVE (NEG-TRACE); UROBILINOGEN,URINE 0.2 mg/dL (0.2 mg/dL)
[2019-05-04 11:38] LABS: BASO # 0.1 x10^3/uL (0.0-0.2); BASO % 1 % (0-3); EOS # 0.1 x10^3/uL (0.0-0.7); EOS % 1 % (0-3); HEMATOCRIT 42.1 % (36.0-47.0); LYMPH # 1.5 x10^3/uL (1.0-4.8); LYMPH % 17 % (24-48); MEAN CORPUSCULAR HEMOGLOBIN 30 pg (25-35); MEAN CORPUSCULAR HGB CONC 33 g/dL (31-37); MEAN CORPUSCULAR VOLUME 90 fL (79-100); MONO # 0.6 x10^3/uL (0.0-1.1); MONO % 7 % (0-9); NEUT # 6.7 x10^3/uL (1.8-7.7); NEUT % 75 % (31-73); PLATELET COUNT 274 x10^3/uL (140-400); RED BLOOD COUNT 4.67 x10^6/uL (3.50-5.40); WHITE BLOOD COUNT 8.9 x10^3/uL (4.0-11.0)
--- NOTE | 2019-05-04 11:40 | PHYS DOC ---
Past Medical History Past Medical History: A-Fib, Arrhythmia, High Cholesterol Past Surgical History: Tonsillectomy, Other Additional Past Surgical Histo: CARDIAC ABLATION, LOOP RECORDER Alcohol Use: Occasionally Drug Use: None Adult General Chief Complaint Chief Complaint: SYNCOPE HPI HPI Patient is a 68 year old female who presents with [syncope. Patient reports she felt fine when she got up earlier this morning, had gone to [employer] for breakfast, after a had gone to a slot machine, had been playing and felt some dizziness. States that she he had stood up and started to feel the room darke con and she had passed out. States she landed on the floor. States she is having some pain in her head, and some stiffness in her neck afterwards. State she did not have any chest pain, no shortness of breath. Denies any nausea, vomiting. Denies any visual changes, however does report her right eye seems a little blurry which she reports is normal for her after her cataract surgeries. Reports symptoms have started at 0900 today Review of Systems Review of Systems Constitutional: Denies fever or chills [] Eyes: Denies change in visual acuity, redness, or eye pain [] HENT: Denies nasal congestion or sore throat [] Respiratory: Denies cough or shortness of breath [] Cardiovascular: No additional information not addressed in HPI [] GI: Denies abdominal pain, nausea, vomiting, bloody stools or diarrhea [] : Denies dysuria or hematuria [] Musculoskeletal: Denies back pain or joint pain does report she has a little stiffness in her left hip after the fall, however denies discomfort at this time [] Integument: Denies rash or skin lesions [] Neurologic: Denies headache, focal weakness or sensory changes reports dizziness improved now[] Endocrine: Denies polyuria or polydipsia [] All other systems were reviewed and found to be within normal limits, except as documented in this note. Current Medications Current Medications Current Medications Medications (Trade) Dose Ordered Sig/Norberto Start Time Stop Time Status Last Admin Dose Admin Sodium Chloride 1,000 ml @ 1,000 mls/hr 1X ONCE 05/04/19 11:30 05/04/19 12:29 DC 05/04/19 12:38 1,000 MLS/HR Allergies Allergies Allergies Coded Allergies Type Severity Reaction Last Updated Verified No Known Drug Allergies 12/6/15 No Physical Exam Physical Exam Constitutional: Well developed, well nourished, no acute distress, non-toxic appearance. [] HENT: Normocephalic, atraumatic, bilateral external ears normal, oropharynx moist, no oral exudates, nose normal. [] Eyes: PERRLA, EOMI, conjunctiva normal, no discharge. [] Neck: Normal range of motion, no tenderness, supple, no stridor. Does indicate some discomfort on movement[] Cardiovascular:Heart rate regular rhythm, no murmur [] Lungs & Thorax: Bilateral breath sounds clear to auscultation [] Abdomen: Bowel sounds normal, soft, no tenderness, no masses, no pulsatile masses. [] Skin: Warm, dry, no erythema, no rash. [] Back: No tenderness, no CVA tenderness. Full range of motion, normal strength to lower and upper extremities[] Extremities: No tenderness, no cyanosis, no clubbing, ROM intact, no edema. [] Neurologic: Alert and oriented X 3, normal motor function, normal sensory function, no focal deficits noted. [] Psychologic: Affect normal, judgement normal, mood normal. [] Current Patient Data Vital Signs Vital Signs Date Time Temp Pulse Resp B/P (MAP) Pulse Ox O2 Delivery O2 Flow Rate FiO2 05/04/19 15:00 72 20 135/55 (81) 96 Room Air 05/04/19 11:15 98.3 98.3 Lab Values Laboratory Tests Test 05/04/19 11:01 05/04/19 11:30 05/04/19 11:52 05/04/19 14:25 Urine Collection Type Unknown Urine Color Yellow Urine Clarity Clear Urine pH 6.0 Urine Specific Franklin <=1.005 Urine Protein Negative mg/dL (NEG-TRACE) Urine Glucose (UA) Negative mg/dL (NEG) Urine Ketones (Stick) Negative mg/dL (NEG) Urine Blood Negative (NEG) Urine Nitrite Negative (NEG) Urine Bilirubin Negative (NEG) Urine Urobilinogen Dipstick 0.2 mg/dL (0.2 mg/dL) Urine Leukocyte Esterase Negative (NEG) Urine RBC 0 /HPF (0-2) Urine WBC Occ /HPF (0-4) Urine Squamous Epithelial Cells Few /LPF Urine Bacteria 0 /HPF (0-FEW) White Blood Count 8.9 x10^3/uL (4.0-11.0) Red Blood Count 4.67 x10^6/uL (3.50-5.40) Hemoglobin 14.0 g/dL (12.0-15.5) Hematocrit 42.1 % (36.0-47.0) Mean Corpuscular Volume 90 fL (79-100) Mean Corpuscular Hemoglobin 30 pg (25-35) Mean Corpuscular Hemoglobin Concent 33 g/dL (31-37) Red Cell Distribution Width 13.0 % (11.5-14.5) Platelet Count 274 x10^3/uL (140-400) Neutrophils (%) (Auto) 75 % (31-73) H Lymphocytes (%) (Auto) 17 % (24-48) L Monocytes (%) (Auto) 7 % (0-9) Eosinophils (%) (Auto) 1 % (0-3) Basophils (%) (Auto) 1 % (0-3) Neutrophils # (Auto) 6.7 x10^3/uL (1.8-7.7) Lymphocytes # (Auto) 1.5 x10^3/uL (1.0-4.8) Monocytes # (Auto) 0.6 x10^3/uL (0.0-1.1) Eosinophils # (Auto) 0.1 x10^3/uL (0.0-0.7) Basophils # (Auto) 0.1 x10^3/uL (0.0-0.2) Prothrombin Time 12.1 SEC (11.7-14.0) Prothrombin Time INR 0.9 (0.8-1.1) Sodium Level 144 mmol/L (136-145) Potassium Level 4.3 mmol/L (3.5-5.1) Chloride Level 106 mmol/L (98-107) Carbon Dioxide Level 26 mmol/L (21-32) Anion Gap 12 (6-14) Blood Urea Nitrogen 12 mg/dL (7-20) Creatinine 1.1 mg/dL (0.6-1.0) H Estimated GFR (Cockcroft-Gault) 49.2 BUN/Creatinine Ratio 11 (6-20) Glucose Level 107 mg/dL (70-99) H Calcium Level 9.4 mg/dL (8.5-10.1) Magnesium Level 1.9 mg/dL (1.8-2.4) Total Bilirubin 0.3 mg/dL (0.2-1.0) Aspartate Amino Transferase (AST) 23 U/L (15-37) Alanine Aminotransferase (ALT) 30 U/L (14-59) Alkaline Phosphatase 159 U/L (46-116) H Troponin I Quantitative 0.022 ng/mL (0.000-0.055) 0.041 ng/mL (0.000-0.055) IV-Tqk-B-Type Natriuretic Peptide 357 pg/mL (0-124) H Total Protein 6.8 g/dL (6.4-8.2) Albumin 3.6 g/dL (3.4-5.0) Albumin/Globulin Ratio 1.1 (1.0-1.7) Thyroid Stimulating Hormone (TSH) 1.715 uIU/mL (0.358-3.74) Laboratory Tests 05/04/19 11:30 Laboratory Tests 05/04/19 11:52 EKG EKG @1123: No ST changes. Per Dr Clifton. Normal sinus rhythm. [] Radiology/Procedures Radiology/Procedures []linical Indication: Syncope Comparison: 07/09/2018 two-view chest x-ray exam. Findings: Portable upright frontal view chest was obtained. Loop recorder device noted overlying the left medial perihilar level. The cardiomediastinal silhouette is normal. Lungs are clear. There is no pneumothorax. No pleural effusion is appreciated. No acute bone abnormality. IMPRESSION: No acute cardiopulmonary process. Electronically signed by: Be Copeland MD (05/04/2019 11:57 AM) [facility] DICTATED and SIGNED BY: BE COPELAND MD DATE: 05/04/19 1157 History: Syncope, head and neck pain Comparison/Correlation: None Findings: Axial images of the head and cervical spine were obtained without contrast. Sagittal and coronal reformatted images were provided. Atrophy is present. No intracranial hemorrhage, midline shift or mass effect. Orbits are unremarkable. Reversal cervical lordosis is present. Atlantoaxial joint degenerative remodeling is mild. Moderate C4-5, C5-6, C6-7 disc space narrowing is present. Facet joint degenerative hypertrophy involving the cervical spine from C3 to C5 is noted especially on the left. Neural foraminal narrowing on the left also evident at these levels Impression: No intracranial hemorrhage. Degenerative changes of the cervical spine. Alignment is unremarkable with no fracture. PQRS Compliance Statement: One or more of the following individualized dose reduction techniques were utilized for this examination: 1. Automated exposure control 2. Adjustment of the mA and/or kV according to patient size 3. Use of iterative reconstruction technique Electronically signed by: Be Copeland MD (05/04/2019 12:23 PM) [facility] Course & Med Decision Making Course & Med Decision Making Pertinent Labs and Imaging studies reviewed. (See chart for details) [Following repeat troponin, noted increase. Will discuss admission with PCP Consult Dr Mckeon, agrees to admission, inpatient. Will trend- troponin, cardiology consult. ] Dragon Disclaimer Dragon Disclaimer This electronic medical record was generated, in whole or in part, using a voice recognition dictation system. Departure Departure Impression: Primary Impression: Syncope Additional Impression: Troponin level elevated Disposition: ADMITTED INPATIENT Admitting Physician: Franchesca Mckeon Condition: STABLE Referrals: FRANCHESCA MCKEON MD (PCP) Problem Qualifiers Primary Impression: Syncope Syncope type: unspecified Qualified Codes: R55 - Syncope and collapse VESTA LARIOS [employer] May 04, 2019 11:40
[2019-05-04 11:46] LABS: PROTHROMBIN TIME PATIENT 12.1 SEC (11.7-14.0)
[2019-05-04 11:49] LABS: BACTERIA,URINE 0 /HPF (0-FEW); RBC,URINE 0 /HPF (0-2); SQUAMOUS EPITHELIAL CELL,UR FEW /LPF; WBC,URINE OCC /HPF (0-4)
--- NOTE | 2019-05-04 12:00 | RAD ---
CHEST AP ONLY Clinical Indication: Syncope Comparison: 07/09/2018 two-view chest x-ray exam. Findings: Portable upright frontal view chest was obtained. Loop recorder device noted overlying the left medial perihilar level. The cardiomediastinal silhouette is normal. Lungs are clear. There is no pneumothorax. No pleural effusion is appreciated. No acute bone abnormality. IMPRESSION: No acute cardiopulmonary process. Electronically signed by: Be Trevino MD (05/04/2019 11:57 AM) [facility]
[2019-05-04 12:10] LABS: CALCIUM 9.4 mg/dL (8.5-10.1); CREATININE 1.1 mg/dL (0.6-1.0); GFR 49.2; POTASSIUM 4.3 mmol/L (3.5-5.1)
[2019-05-04 12:16] LABS: ALBUMIN 3.6 g/dL (3.4-5.0); ALBUMIN/GLOBULIN RATIO 1.1 (1.0-1.7); MAGNESIUM 1.9 mg/dL (1.8-2.4); TOTAL BILIRUBIN 0.3 mg/dL (0.2-1.0); TOTAL PROTEIN 6.8 g/dL (6.4-8.2)
--- NOTE | 2019-05-04 12:26 | RAD ---
Examination: CT HEAD AND CERVICAL SPINE WO History: Syncope, head and neck pain Comparison/Correlation: None Findings: Axial images of the head and cervical spine were obtained without contrast. Sagittal and coronal reformatted images were provided. Atrophy is present. No intracranial hemorrhage, midline shift or mass effect. Orbits are unremarkable. Reversal cervical lordosis is present. Atlantoaxial joint degenerative remodeling is mild. Moderate C4-5, C5-6, C6-7 disc space narrowing is present. Facet joint degenerative hypertrophy involving the cervical spine from C3 to C5 is noted especially on the left. Neural foraminal narrowing on the left also evident at these levels Impression: No intracranial hemorrhage. Degenerative changes of the cervical spine. Alignment is unremarkable with no fracture. PQRS Compliance Statement: One or more of the following individualized dose reduction techniques were utilized for this examination: 1. Automated exposure control 2. Adjustment of the mA and/or kV according to patient size 3. Use of iterative reconstruction technique Electronically signed by: Be Trevino MD (05/04/2019 12:23 PM) [facility]
[2019-05-04] MEDS ORDERED: ONDANSETRON PF 4 MG/2 ML VIAL. IV PRN (15:45)
[2019-05-04 16:21] VITALS: BP 129/51
--- NOTE | 2019-05-04 16:45 | NUR ---
pt admitted to room 114 from ED. pt able to ambulate from ed card to ICU bed independently. denies pain at this time. VSS. pt oriented to room and call light.
[2019-05-04] MEDS: IV NORMAL SALINE 1000ML BAG 1,000 ML IV SCH (16:54)
[2019-05-04 20:15] VITALS: BP 110/54
[2019-05-04] MEDS ORDERED: ATORVASTATIN CALCIUM 40 MG TABLET. PO SCH (21:00)
[2019-05-04] MEDS ORDERED: METOPROLOL TART IMMED RELEASE 25 MG TABLET. PO SCH (21:00)
[2019-05-04 23:00] VITALS: BP 121/44
[2019-05-05 03:31] VITALS: BP 105/48
[2019-05-05 05:03] LABS: BASO # 0.1 x10^3/uL (0.0-0.2); BASO % 1 % (0-3); EOS # 0.3 x10^3/uL (0.0-0.7); EOS % 4 % (0-3); HEMOGLOBIN 12.2 g/dL (12.0-15.5); LYMPH # 3.3 x10^3/uL (1.0-4.8); LYMPH % 42 % (24-48); MEAN CORPUSCULAR HEMOGLOBIN 30 pg (25-35); MEAN CORPUSCULAR HGB CONC 33 g/dL (31-37); MEAN CORPUSCULAR VOLUME 92 fL (79-100); MONO # 0.7 x10^3/uL (0.0-1.1); MONO % 9 % (0-9); NEUT # 3.5 x10^3/uL (1.8-7.7); NEUT % 45 % (31-73); PLATELET COUNT 242 x10^3/uL (140-400); RED BLOOD COUNT 4.03 x10^6/uL (3.50-5.40); RED CELL DISTRIBUTION WIDTH 13.2 % (11.5-14.5); WHITE BLOOD COUNT 7.8 x10^3/uL (4.0-11.0)
[2019-05-05 05:22] LABS: CALCIUM 8.5 mg/dL (8.5-10.1); CREATININE 0.8 mg/dL (0.6-1.0); GFR 71.1
[2019-05-05] MEDS: IV NORMAL SALINE 1000ML BAG 1,000 ML IV SCH (06:22)
--- NOTE | 2019-05-05 06:54 | EKG ---
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
[2019-05-05 07:00] VITALS: BP 141/66
[2019-05-05 11:00] VITALS: BP 163/62
--- NOTE | 2019-05-05 11:01 | CARD ---
MR#: [id number] Date of Study: 05/05/2019 Ordering Physician: FRANCHESCA KRAMER, Referring Physician: FRANCHESCA KRAMER, Tech: Zoya Hinkle APPROVED REPORT EXAM: Two-dimensional and M-mode echocardiogram with Doppler and color Doppler. Other Information Quality : GoodHR: 68bpm INDICATION Atrial Fibrillation Chest Pain Syncope RISK FACTORS Hyperlipidemia 2D DIMENSIONS RVDd2.9 (2.9-3.5cm)Left Atrium(2D)3.6 (1.6-4.0cm) IVSd1.0 (0.7-1.1cm)Aortic Root(2D)3.0 (2.0-3.7cm) LVDd5.2 (3.9-5.9cm)LVOT Diameter1.9 (1.8-2.4cm) PWd1.2 (0.7-1.1cm)LVDs3.3 (2.5-4.0cm) FS (%) 36.2 %SV86.0 ml LVEF(%)65.5 (>50%) Aortic Valve AoV Peak Michael.133.6cm/sAoV VTI32.4cm AO Peak GR.7.1mmHgLVOT VTI 19.70cm AO Mean GR.4mmHg Mitral Valve MV E Ckggfuhm34.1cm/sMV E Peak Gr.3mmHg MV DECEL [id number] A Gsoflrmn03.0cm/s MV E Mean Gr.1mmHgE/A Ratio1.1 TDI Lateral E' P. V10.04cm/sMedial E' P. V9.20cm/s E/Lateral E'7.4E/Medial E'8.1 Tricuspid Valve TR P. Lnlonmdk269se/sRAP [id number] TR Peak Gr.59lsTvGQBW05vmIw Pulmonary Vein S1 Koyetckm14.2cm/sS2 Oiyrvdkv12.67cm/s D2 Qjccerml84.7cm/sPVa [id number] LEFT VENTRICLE The left ventricle is normal size. There is mild concentric left ventricular hypertrophy. The left ve ntricular systolic function is normal and the ejection fraction is within normal range. The Ejection Fraction is 55-60%. There is normal LV segmental wall motion. The left ventricular diastolic function and filling is normal for age. RIGHT VENTRICLE The right ventricle is normal size. There is normal right ventricular wall thickness. The right ventr icular systolic function is normal. ATRIA The left atrium size is normal. The right atrium size is normal. The interatrial septum is intact wit h no evidence for an atrial septal defect or patent foramen ovale as noted on 2-D or Doppler imaging. AORTIC VALVE The aortic valve is normal in structure and function. Doppler and Color Flow revealed no significant aortic regurgitation. There is no significant aortic valvular stenosis. MITRAL VALVE The mitral valve is normal in structure and function. There is no evidence of mitral valve prolapse. There is no mitral valve stenosis. Doppler and Color-flow revealed trace mitral regurgitation. TRICUSPID VALVE The tricuspid valve is normal in structure and function. Doppler and Color Flow revealed trace tricus pid regurgitation with an estimated PAP of 36 mmHg. There is no tricuspid valve stenosis. PULMONIC VALVE Doppler and Color Flow revealed trace pulmonic valvular regurgitation. GREAT VESSELS The aortic root is normal in size. The ascending aorta is normal in size. The IVC is normal in size a nd collapses >50% with inspiration. PERICARDIAL EFFUSION There is no evidence of significant pericardial effusion. Critical Notification Critical Value: No <Conclusion> The left ventricular systolic function is normal and the ejection fraction is within normal range. Th e Ejection Fraction is 55-60%. There is normal LV segmental wall motion. Signed by : Louie Fletcher, Electronically Approved : 05/05/2019 11:00:35
--- NOTE | 2019-05-05 11:53 | PDOC2 ---
APRIL MCDUFFIE KEISHA 05/05/19 1153: CARDIAC CONSULT DATE OF CONSULT Date of Consult DATE: 05/05/19 TIME: 11:46 REASON FOR CONSULT Reason for Consult: Syncope Elevated troponin REFERRING PHYSICIAN Referring Physician: Saad Dodd APRN SOURCE Source: Chart review, Patient HISTORY OF PRESENT ILLNESS HISTORY OF PRESENT ILLNESS This is a 68 yo female who presented secondary to syncopal episode. Patient reports she was at the [employer] yesterday morning and sitting in the chair playing a slot machine when she became significantly dizzy. Stood up and subsequently passes out briefly. No reports of chest pain, papitations, dizziness, diaphoresis, or nausea/vomiting. She did not have breakfast so she went and got something to eat. Did not feel significantly better so she went home and had her niece bring her to the ED for further evaluation and treatment. No dizziness or near syncope since. PAST MEDICAL HISTORY Past Medical History Cardiovascular: AFIB, Hyperlipidemia, Other (SVT- AVNRT) Pulmonary: No pertinent hx CENTRAL NERVOUS SYSTEM: Other (no pertinent hx) GI: No pertinent hx Heme/Onc: No pertinent hx Hepatobiliary: No pertinent hx Psych: No pertinent hx Musculoskeletal: Osteoarthritis Rheumatologic: No pertinent hx Infectious disease: No pertinent hx ENT: No pertinent hx Renal/: No pertinent hx Endocrine: No pertinent hx Dermatology: No pertinent hx PAST SURGICAL HISTORY Past Surgical History Other (RF ablation, [facility] [facility] loop recorder) FAMILY HISTORY Family History: Diabetes SOCIAL HISTORY Social History Smoke: No ALCOHOL: none Drugs: None Lives: with Family CURRENT MEDICATIONS CURRENT MEDICATIONS Current Medications Medications (Trade) Dose Ordered Sig/Norberto Route PRN Reason Start Time Stop Time Status Last Admin Dose Admin Sodium Chloride 1,000 ml @ 75 mls/hr [id number] IV 05/04/19 15:36 05/05/19 15:35 05/05/19 06:22 Metoprolol Tartrate (Lopressor) 25 mg BID PO 05/04/19 21:00 05/04/19 20:32 Atorvastatin Calcium (Lipitor) 40 mg QHS PO 05/04/19 21:00 05/04/19 20:31 ALLERGIES ALLERGIES: Coded Allergies: No Known Drug Allergies (Unverified , 03/14/15) ROS Review of System 14 point ROS conducted with pertinent positives noted above in HPI PHYSICAL EXAM PHYSICAL EXAM General: Alert, Oriented X3, Cooperative, No acute distress HEENT: Atraumatic, Mucous membr. moist/pink Lungs: Clear to auscultation, Normal air movement Heart: Regular rate, Normal S1, Normal S2 Abdomen: Soft, No tenderness Extremities: No edema Skin: No breakdown, No significant lesion Neuro: Normal speech, Sensation intact Psych/Mental Status: Mental status NL, Mood NL MUSCULOSKELETAL: Osteoarthritic changes both hands VITALS/I&O VITALS/I&O: Vital Signs Date Time Temp Pulse Resp B/P (MAP) Pulse Ox O2 Delivery O2 Flow Rate FiO2 05/05/19 11:00 98.4 57 18 163/62 (95) 97 Room Air 98.4 I & O 05/04/19 05/04/19 05/05/19 15:00 23:00 07:00 Intake Total 2150 ml 533 ml Output Total 450 ml 350 ml Balance 1700 ml 183 ml LABS Lab: Laboratory Tests Test 05/04/19 11:52 05/04/19 14:25 05/04/19 19:00 05/04/19 21:40 Sodium Level 144 mmol/L (136-145) Potassium Level 4.3 mmol/L (3.5-5.1) Chloride Level 106 mmol/L (98-107) Carbon Dioxide Level 26 mmol/L (21-32) Anion Gap 12 (6-14) Blood Urea Nitrogen 12 mg/dL (7-20) Creatinine 1.1 mg/dL (0.6-1.0) H Estimated GFR (Cockcroft-Gault) 49.2 BUN/Creatinine Ratio 11 (6-20) Glucose Level 107 mg/dL (70-99) H Calcium Level 9.4 mg/dL (8.5-10.1) Magnesium Level 1.9 mg/dL (1.8-2.4) Total Bilirubin 0.3 mg/dL (0.2-1.0) Aspartate Amino Transferase (AST) 23 U/L (15-37) Alanine Aminotransferase (ALT) 30 U/L (14-59) Alkaline Phosphatase 159 U/L (46-116) H Troponin I Quantitative 0.022 ng/mL (0.000-0.055) 0.041 ng/mL (0.000-0.055) 0.062 ng/mL (0.000-0.055) 0.036 ng/mL (0.000-0.055) OQ-Yfu-P-Type Natriuretic Peptide 357 pg/mL (0-124) H Total Protein 6.8 g/dL (6.4-8.2) Albumin 3.6 g/dL (3.4-5.0) Albumin/Globulin Ratio 1.1 (1.0-1.7) Thyroid Stimulating Hormone (TSH) 1.715 uIU/mL (0.358-3.74) Lactic Acid Level 1.2 mmol/L (0.4-2.0) Test 05/05/19 04:40 White Blood Count 7.8 x10^3/uL (4.0-11.0) Red Blood Count 4.03 x10^6/uL (3.50-5.40) Hemoglobin 12.2 g/dL (12.0-15.5) Hematocrit 37.0 % (36.0-47.0) Mean Corpuscular Volume 92 fL (79-100) Mean Corpuscular Hemoglobin 30 pg (25-35) Mean Corpuscular Hemoglobin Concent 33 g/dL (31-37) Red Cell Distribution Width 13.2 % (11.5-14.5) Platelet Count 242 x10^3/uL (140-400) Neutrophils (%) (Auto) 45 % (31-73) Lymphocytes (%) (Auto) 42 % (24-48) Monocytes (%) (Auto) 9 % (0-9) Eosinophils (%) (Auto) 4 % (0-3) H Basophils (%) (Auto) 1 % (0-3) Neutrophils # (Auto) 3.5 x10^3/uL (1.8-7.7) Lymphocytes # (Auto) 3.3 x10^3/uL (1.0-4.8) Monocytes # (Auto) 0.7 x10^3/uL (0.0-1.1) Eosinophils # (Auto) 0.3 x10^3/uL (0.0-0.7) Basophils # (Auto) 0.1 x10^3/uL (0.0-0.2) Sodium Level 144 mmol/L (136-145) Potassium Level 4.0 mmol/L (3.5-5.1) Chloride Level 111 mmol/L (98-107) H Carbon Dioxide Level 27 mmol/L (21-32) Anion Gap 6 (6-14) Blood Urea Nitrogen 10 mg/dL (7-20) Creatinine 0.8 mg/dL (0.6-1.0) Estimated GFR (Cockcroft-Gault) 71.1 Glucose Level 101 mg/dL (70-99) H Calcium Level 8.5 mg/dL (8.5-10.1) Laboratory Tests 05/05/19 04:40 Laboratory Tests 05/04/19 11:52 05/05/19 04:40 ECHOCARDIOGRAM ECHOCARDIOGRAM <Conclusion> The left ventricle is normal size. The left ventricular systolic function is normal and the ejection fraction is within normal range. The Ejection Fraction is 60-65%. There is no significant aortic valvular stenosis. Doppler and Color Flow revealed no significant aortic regurgitation. Doppler and Color Flow revealed no mitral valve regurgitation noted. Doppler and Color Flow revealed mild tricuspid regurgitation. The PA pressure was estimated at 36 mmHg. There is a trace pericardial effusion with no hemodynamic significance. DATE: 07/10/18 1124 <Conclusion> The left ventricular systolic function is normal and the ejection fraction is within normal range. The Ejection Fraction is 55-60%. There is normal LV segmental wall motion. DATE: 05/05/19 1044 STRESS TEST STRESS TEST Stress Echocardiogram <Conclusion> Good exercise capacity at 10.1 Mets achieved. Abnormal EKG response with SVT and inferolateral ST segment depression Normal resting and stress wall motion and EF with appropriate augmentation. Low to moderate risk study DATE: 08/16/17 1427 ASSESSMENT/PLAN ASSESSMENT/PLAN 1. Syncope; etiology unclear. ? vasovagal, orthostasis 2. GATO, dehydration; improved with IVFs 3. Mild troponin elevated; peak 0.06. Possible type II, demand ischemic. Echo showed preserved LV systolic function. CP free. 4. PSVT, PAFIB; s/p ablation x2 with most recent 09/2017. Previously on flecainide for rhythm maintenance, but this was discontinued due to adverse side effects. 5. S/p Loop recorder implant ([facility]) 6. Hypertension; controlled 7. Hyperlipidemia; statin Recommendations Loop recorder interrogation Check orthostatic HR and BP Add ASA. statin therapy Continue BB if no bradyarrhythmias noted. Consider outpatient ischemic evaluation Further pending above VITOR HUNTER MD 05/05/19 1608: CARDIAC CONSULT ASSESSMENT/PLAN ASSESSMENT/PLAN Patient seen and examined. Agree with above nurse practitioner note. Loop recorder reviewed. No obvious arrhythmias noted to converse syncope. Suspect orthostatic hypotension that led to this. Supportive care for now. Echocardiogram reviewed and within normal limits. APRIL MCDUFFIE APRN May 05, 2019 11:53 VITOR HUNTER MD May 05, 2019 16:08
[2019-05-05 14:00] VITALS: BP 121/48
[2019-05-05 14:02] VITALS: BP 123/58
[2019-05-05 14:05] VITALS: BP 117/60
--- NOTE | 2019-05-05 16:26 | NUR ---
Patient discharged to home at 1626. Patient left via private vehicle accompanied by niece. Patient was given instructions on syncope, told to continue home medications prior to admission and follow up with Dr. Mckeon within two weeks and Dr. Fletcher in a month.
[2019-05-05] MEDS ORDERED: ASPIRIN ENTERIC COATED 81 MG TABLET.DR. PO SCH (17:00)
--- NOTE | 2019-05-05 18:19 | HP ---
ADMIT DATE: CHIEF COMPLAINT AND HISTORY OF PRESENT ILLNESS: This 68-year-old white female is well known to me from followup in the office. The patient had felt fine on the morning of admission, [place] the [place] breakfast, felt somewhat lightheaded in hot of the slot machine, got up to go to another one, felt the room darkening and passed out. She woke up on the floor. Also, she does have some headache following this and some neck stiffness. She denied any palpitation, chest pain, nausea, vomiting, shortness of breath, diaphoresis preceding this. She was admitted through the Emergency Room with a syncopal episode. PAST MEDICAL HISTORY: Remarkable for atrial fibrillation with prior ablation, hyperlipidemia. PAST SURGICAL HISTORY: Remarkable for tonsillectomy, cardiac ablation, loop recorder. MEDICATIONS: Brought with the patient, listed on the computer and have been addressed. ALLERGIES: She has no known drug allergies. SOCIAL HISTORY: She is nonsmoker, occasional use of alcohol. Denies drugs. FAMILY HISTORY: Noncontributory. REVIEW OF SYSTEMS: As mentioned in the history of present illness. PHYSICAL EXAMINATION: GENERAL: She is well-developed, well-nourished white female, in no acute distress and feeling fine by the time of my examination. VITAL SIGNS: Stable. She is afebrile. There have been no arrhythmias. HEAD, EYES, EARS, NOSE AND THROAT: Unremarkable. NECK: Supple, without adenopathy or thyromegaly. CHEST: Clear to auscultation and percussion. HEART: Regular rate and rhythm without S3, S4 or murmur. ABDOMEN: Soft, nontender, without hepatosplenomegaly or masses. EXTREMITIES: Without cyanosis, clubbing, edema. NEUROLOGIC: She is intact. IMPRESSION: 1. Syncope. 2. Very mild elevation in troponin. PLAN: ICU monitoring with Cardiology consultation. Further workup and plan, I have ordered her an echocardiogram and we will defer to them as far as further workup goes at this point in time. FRANCHESCA KRAMER MD DR: LUIS/adeel JOB#: [id number] / [id number]
--- NOTE | 2019-05-05 20:43 | DS ---
DATE OF DISCHARGE: 05/05/2019 PRIMARY DIAGNOSES: 1. Syncope. 2. History of atrial fibrillation, very mild elevation of troponin. 3. Hyperlipidemia. CHIEF COMPLAINT AND HISTORY OF PRESENT ILLNESS: This 68-year-old white female presented after a syncopal episode described in the history and physical with a mild elevation of troponin, was kept for monitoring. SUMMARY OF STAY: The patient was admitted and observed in the ICU, had no arrhythmias during the stay and had an implanted loop recorder actually and was able to be interrogated and found that there were no significant arrhythmias at the time of the event. Echocardiogram was within normal limits. Cardiology saw her, felt with all this information that they were good with her leaving and suspected orthostatic hypotension led to this and that she can be dismissed and this was indeed the case on the 05/05. DISPOSITION: The patient is discharged to home. DIET: Regular. ACTIVITY: As tolerated, office in 1 week. She is to resume her regular home medications. FRANCHESCA KRAMER MD DR: LUIS/adeel JOB#: [id number] / [id number]
== END 2019-05-05 20:23 | disposition home or self-care (01) | DRG 312 ==
LOC: ER 10:35 → 1 WEST ICU 15:34
PROVIDERS: ADMIT Family Medicine; ATTEND Family Medicine
PROC: 4A02XFZ Measurement of Cardiac Rhythm, External Approach (ICD-10-PCS; principal; 2019-05-05)
DX: I95.1 Orthostatic hypotension (principal); N17.9 Acute kidney failure, unspecified; I47.1 Supraventricular tachycardia; E78.00 Pure hypercholesterolemia, unspecified; I48.91 Unspecified atrial fibrillation; M19.90 Unspecified osteoarthritis, unspecified site; E78.5 Hyperlipidemia, unspecified; E86.0 Dehydration; I10 Essential (primary) hypertension; Z98.49 Cataract extraction status, unspecified eye; Z83.3 Family history of diabetes mellitus
CPT/HCPCS: 36415; 70450; 71045; 72125; 80048; 80053; 81001; 83605; 83735; 83880; 84443; 84484; 85025; 85610; 93005; 93306; 96360; 96361; J7030; 99285-25; G0378

== ENCOUNTER → 2019-08-22 | Outpatient (CLI) | payer BC ==
[2019-05-12 21:16] VITALS: BP 137/67
[~2019-08-22] MED LIST changes: +CLON0.1T PO
[2019-08-22 10:00] LABS: ALBUMIN 3.6 g/dL (3.4-5.0); ALBUMIN/GLOBULIN RATIO 1.1 (1.0-1.7); CALCIUM 8.9 mg/dL (8.5-10.1); CREATININE 0.9 mg/dL (0.6-1.0); GFR 62.1; POTASSIUM 4.8 mmol/L (3.5-5.1); TOTAL BILIRUBIN 0.5 mg/dL (0.2-1.0)
== END | disposition home or self-care (01) ==
LOC: LAB 09:19
PROVIDERS: ATTEND Internal Medicine Cardiovascular Disease
DX: E78.5 Hyperlipidemia, unspecified (principal)
CPT/HCPCS: 36415; 80053; 80061; 83721

== ENCOUNTER 2019-10-17 13:01 | Inpatient (IN) | payer MEDICARE, BC ==
[~2019-10-17] VITALS: Ht 157.5 cm; Wt 73.0 kg
[~2019-10-17 13:01] MED LIST changes: -ASPI-612 PO; +ASPI-886 PO; +MULT-445 PO; -MULT1TAB52 PO
--- NOTE | 2019-10-17 13:26 | RAD ---
AP chest. HISTORY: Chest pain AP view was taken of the chest. Lungs are clear. Heart is normal in size. There is no effusion. IMPRESSION: 1. No acute chest disease. Electronically signed by: Eric Vincent MD (10/17/2019 1:24 PM) [facility]
[2019-10-17 13:27] LABS: BASO # 0.2 x10^3/uL (0.0-0.2); BASO % 2 % (0-3); EOS # 0.2 x10^3/uL (0.0-0.7); EOS % 2 % (0-3); HEMATOCRIT 42.8 % (36.0-47.0); HEMOGLOBIN 14.5 g/dL (12.0-15.5); LYMPH # 3.4 x10^3/uL (1.0-4.8); LYMPH % 31 % (24-48); MEAN CORPUSCULAR HEMOGLOBIN 30 pg (25-35); MEAN CORPUSCULAR HGB CONC 34 g/dL (31-37); MEAN CORPUSCULAR VOLUME 89 fL (79-100); MONO # 0.8 x10^3/uL (0.0-1.1); MONO % 7 % (0-9); NEUT # 6.5 x10^3/uL (1.8-7.7); NEUT % 59 % (31-73); PLATELET COUNT 310 x10^3/uL (140-400); RED BLOOD COUNT 4.79 x10^6/uL (3.50-5.40); RED CELL DISTRIBUTION WIDTH 13.3 % (11.5-14.5)
[2019-10-17 13:38] LABS: PROTHROMBIN TIME PATIENT 12.1 SEC (11.7-14.0)
[2019-10-17 13:39] LABS: CALCIUM 9.4 mg/dL (8.5-10.1); CREATININE 1.4 mg/dL (0.6-1.0); GFR 37.3; POTASSIUM 3.8 mmol/L (3.5-5.1)
[2019-10-17 13:45] LABS: ALBUMIN 3.9 g/dL (3.4-5.0); DIRECT BILIRUBIN 0.1 mg/dL (0.0-0.2); TOTAL BILIRUBIN 0.3 mg/dL (0.2-1.0); TOTAL PROTEIN 7.5 g/dL (6.4-8.2)
--- NOTE | 2019-10-17 13:47 | PHYS DOC ---
Past Medical History Past Medical History: A-Fib, Arrhythmia, High Cholesterol, Hypertension Past Surgical History: Tonsillectomy, Other Additional Past Surgical Histo: CARDIAC ABLATION x2, LOOP RECORDER Smoking Status: Never Smoker Alcohol Use: None Drug Use: None General Adult EDM: Chief Complaint: CHEST PAIN HPI: HPI: 68-year-old female presents emergency department today with chest pain. She describes it as a gripping pressure sensation that was worse earlier and now is improved. She takes blood pressure medication and has a history of an ablation for A. fib. She has high cholesterol and high blood pressure. She has never had cardiac stenting. She recently started taking hydralazine. Currently her pressure sensation is minimal. She took a baby aspirin earlier today as she does every day. Review of systems negative for shortness of breath abdominal pain vomiting fevers chills or headache. All other review systems negative. ED course: 68-year-old female presenting with chest pain. EKG obtained and reviewed by myself shows sinus rhythm with a mildly tachycardic rate. ST segments congruent. Not suggestive of acute ischemia. Chest x-ray and blood work ordered. Chest x-ray is unremarkable. Elevated creatinine. 0.9 previously 1.4 now. We will admit the patient for serial troponins and cardiology consultation. I spoke with Dr. Hamm who accepts the patient for admission. Heart Score: HEART Score for Chest Pain: HEART Score for Chest Pain Response (Comments) Value History Moderately Suspicious 1 ECG Normal 0 Age > 65 2 Risk Factors 1 or 2 Risk Factors 1 Troponin >1-<3x Normal Limit 1 Total 5 Risk Factors: Risk Factors: DM, Current or recent (<one month) smoker, HTN, HLP, family history of CAD, obesity. Risk Scores: Score 0 - 3: 2.5% MACE over next 6 weeks - Discharge Home Score 4 - 6: 20.3% MACE over next 6 weeks - Admit for Clinical Observation Score 7 - 10: 72.7% MACE over next 6 weeks - Early Invasive Strategies Allergies: Allergies: Allergies Coded Allergies Type Severity Reaction Last Updated Verified No Known Drug Allergies 03/14/15 No Physical Exam: PE: Constitutional: Well developed, well nourished, no acute distress, non-toxic appearance. [] HENT: Normocephalic, atraumatic, bilateral external ears normal, oropharynx moist, no oral exudates, nose normal. [] Eyes: PERRLA, EOMI, conjunctiva normal, no discharge. [] Neck: Normal range of motion, no tenderness, supple, no stridor. [] Cardiovascular:Heart rate regular rhythm, no murmur [] Lungs & Thorax: Bilateral breath sounds clear to auscultation [] Abdomen: Bowel sounds normal, soft, no tenderness, no masses, no pulsatile masses. [] Skin: Warm, dry, no erythema, no rash. [] Back: No tenderness, no CVA tenderness. [] Extremities: No tenderness, no cyanosis, no clubbing, ROM intact, no edema. [] Neurologic: Alert and oriented X 3, normal motor function, normal sensory function, no focal deficits noted. [] Psychologic: Affect normal, judgement normal, mood normal. [] Current Patient Data: Labs: Laboratory Tests Test 10/17/19 13:10 White Blood Count 11.0 x10^3/uL (4.0-11.0) Red Blood Count 4.79 x10^6/uL (3.50-5.40) Hemoglobin 14.5 g/dL (12.0-15.5) Hematocrit 42.8 % (36.0-47.0) Mean Corpuscular Volume 89 fL (79-100) Mean Corpuscular Hemoglobin 30 pg (25-35) Mean Corpuscular Hemoglobin Concent 34 g/dL (31-37) Red Cell Distribution Width 13.3 % (11.5-14.5) Platelet Count 310 x10^3/uL (140-400) Neutrophils (%) (Auto) 59 % (31-73) Lymphocytes (%) (Auto) 31 % (24-48) Monocytes (%) (Auto) 7 % (0-9) Eosinophils (%) (Auto) 2 % (0-3) Basophils (%) (Auto) 2 % (0-3) Neutrophils # (Auto) 6.5 x10^3/uL (1.8-7.7) Lymphocytes # (Auto) 3.4 x10^3/uL (1.0-4.8) Monocytes # (Auto) 0.8 x10^3/uL (0.0-1.1) Eosinophils # (Auto) 0.2 x10^3/uL (0.0-0.7) Basophils # (Auto) 0.2 x10^3/uL (0.0-0.2) Prothrombin Time 12.1 SEC (11.7-14.0) Prothrombin Time INR 0.9 (0.8-1.1) Activated Partial Thromboplast Time 28 SEC (24-38) Sodium Level 141 mmol/L (136-145) Potassium Level 3.8 mmol/L (3.5-5.1) Chloride Level 105 mmol/L (98-107) Carbon Dioxide Level 24 mmol/L (21-32) Anion Gap 12 (6-14) Blood Urea Nitrogen 14 mg/dL (7-20) Creatinine 1.4 mg/dL (0.6-1.0) H Estimated GFR (Cockcroft-Gault) 37.3 Glucose Level 125 mg/dL (70-99) H Calcium Level 9.4 mg/dL (8.5-10.1) Total Bilirubin Pending Direct Bilirubin Pending Aspartate Amino Transferase (AST) Pending Alanine Aminotransferase (ALT) Pending Alkaline Phosphatase Pending Total Protein Pending Albumin Pending Lipase Pending Laboratory Tests 10/17/19 13:10 Laboratory Tests 10/17/19 13:10 Vital Signs: Vital Signs Date Time Temp Pulse Resp B/P (MAP) Pulse Ox O2 Delivery O2 Flow Rate FiO2 10/17/19 13:05 98.4 93 16 137/58 (84) 99 Room Air 98.4 EKG: EKG: [] Radiology/Procedures: Radiology/Procedures: [] Course & Med Decision Making: Course & Med Decision Making Pertinent Labs and Imaging studies reviewed. (See chart for details) [] Dragon Disclaimer: Dragon Disclaimer: This electronic medical record was generated, in whole or in part, using a voice recognition dictation system. Departure Departure Impression: Primary Impression: Chest pain Disposition: ADMITTED INPATIENT Admitting Physician: Franchesca Kramer Referrals: FRANCHESCA KRAMER MD (PCP) Justicifation of Admission Dx: Justifications for Admission: Justification of Admission Dx: Yes Angina: Symp at Rest CATALINO GRANADOS MD Oct 17, 2019 13:47
--- NOTE | 2019-10-17 14:24 | PDOC2 ---
JEET MENCHACA GORE CUTTER 10/17/19 1424: CARDIAC CONSULT DATE OF CONSULT Date of Consult DATE: 10/17/19 TIME: 13:53 REASON FOR CONSULT Reason for Consult: Chest pain REFERRING PHYSICIAN Referring Physician: Manjula SOURCE Source: Chart review, Patient HISTORY OF PRESENT ILLNESS HISTORY OF PRESENT ILLNESS This is a pleasant 68 yo female admitted for complains of chest pain. This is pressure which start today at 11 AM. She has been checking her BP at home and she has noted her SBP in the 190s on 10/14/2019. She called our office and was instructed to give herself an extra dose but reacted to well and her SBP dropped in the 90s. Her BP did rebound and after another check SBP was in the 170s. Today she started having mid chest pressure around 1100 AM and finally at 12 decided to go to ED transported by her niece. She checked her BP at that time and her SBP was in the 70s. Had a mild LOVE in the back of her head and had some blurred vision more to right eye. She also had some facial tingling to her left face thinking must be an infection and sensation of feeling hot on that side few weeks ago in September and was told by her dentist may be it is possibly trigeminal neuralgia. Denies any slurred speech but does have some fullness to her left ear. No nausea or vomiting but does have some occasional dizziness and does admit some FONG. No vertigo. No hx of CVA. No unilateral extremity weakness. No recent falls or injury. PAST MEDICAL HISTORY Past Medical History Cardiovascular: AFIB (recently noted with very low burden), Hyperlipidemia, Other (SVT- AVNRT) Pulmonary: No pertinent hx CENTRAL NERVOUS SYSTEM: Other (no pertinent hx) GI: No pertinent hx Heme/Onc: No pertinent hx Hepatobiliary: No pertinent hx Psych: No pertinent hx Musculoskeletal: Osteoarthritis, cervical stenosis Rheumatologic: No pertinent hx Infectious disease: No pertinent hx ENT: tinnitus Renal/: No pertinent hx Endocrine: No pertinent hx Dermatology: No pertinent history PAST SURGICAL HISTORY Past Surgical History RF ablation, [facility] loop recorder FAMILY HISTORY Family History: Diabetes SOCIAL HISTORY Smoke: No ALCOHOL: none Drugs: None Lives: with Family ALLERGIES ALLERGIES: Coded Allergies: No Known Drug Allergies (Unverified , 03/14/15) ROS Review of System 14 point ROS evaluated with pertinent positives noted per HPI PHYSICAL EXAM General: Alert, Oriented X3, Cooperative, No acute distress HEENT: Atraumatic, Mucous membr. moist/pink Lungs: Clear to auscultation, Normal air movement Heart: Regular rate (SR), Normal S1, Normal S2, No murmurs Abdomen: Soft, No tenderness Extremities: No cyanosis, No edema Skin: No breakdown, No significant lesion Neuro: Normal speech, Sensation intact Psych/Mental Status: Mental status NL, Mood NL MUSCULOSKELETAL: Osteoarthritic changes both hands VITALS/I&O VITALS/I&O: Vital Signs Date Time Temp Pulse Resp B/P (MAP) Pulse Ox O2 Delivery O2 Flow Rate FiO2 10/17/19 13:05 98.4 93 16 137/58 (84) 99 Room Air 98.4 LABS Lab: Laboratory Tests Test 10/17/19 13:10 White Blood Count 11.0 x10^3/uL (4.0-11.0) Red Blood Count 4.79 x10^6/uL (3.50-5.40) Hemoglobin 14.5 g/dL (12.0-15.5) Hematocrit 42.8 % (36.0-47.0) Mean Corpuscular Volume 89 fL (79-100) Mean Corpuscular Hemoglobin 30 pg (25-35) Mean Corpuscular Hemoglobin Concent 34 g/dL (31-37) Red Cell Distribution Width 13.3 % (11.5-14.5) Platelet Count 310 x10^3/uL (140-400) Neutrophils (%) (Auto) 59 % (31-73) Lymphocytes (%) (Auto) 31 % (24-48) Monocytes (%) (Auto) 7 % (0-9) Eosinophils (%) (Auto) 2 % (0-3) Basophils (%) (Auto) 2 % (0-3) Neutrophils # (Auto) 6.5 x10^3/uL (1.8-7.7) Lymphocytes # (Auto) 3.4 x10^3/uL (1.0-4.8) Monocytes # (Auto) 0.8 x10^3/uL (0.0-1.1) Eosinophils # (Auto) 0.2 x10^3/uL (0.0-0.7) Basophils # (Auto) 0.2 x10^3/uL (0.0-0.2) Prothrombin Time 12.1 SEC (11.7-14.0) Prothrombin Time INR 0.9 (0.8-1.1) Activated Partial Thromboplast Time 28 SEC (24-38) Sodium Level 141 mmol/L (136-145) Potassium Level 3.8 mmol/L (3.5-5.1) Chloride Level 105 mmol/L (98-107) Carbon Dioxide Level 24 mmol/L (21-32) Anion Gap 12 (6-14) Blood Urea Nitrogen 14 mg/dL (7-20) Creatinine 1.4 mg/dL (0.6-1.0) H Estimated GFR (Cockcroft-Gault) 37.3 Glucose Level 125 mg/dL (70-99) H Calcium Level 9.4 mg/dL (8.5-10.1) Total Bilirubin 0.3 mg/dL (0.2-1.0) Direct Bilirubin 0.1 mg/dL (0.0-0.2) Aspartate Amino Transferase (AST) 20 U/L (15-37) Alanine Aminotransferase (ALT) 26 U/L (14-59) Alkaline Phosphatase 131 U/L (46-116) H Troponin I Quantitative < 0.017 ng/mL (0.000-0.055) JN-Phm-C-Type Natriuretic Peptide 230 pg/mL (0-124) H Total Protein 7.5 g/dL (6.4-8.2) Albumin 3.9 g/dL (3.4-5.0) Lipase 124 U/L (73-393) Laboratory Tests 10/17/19 13:10 Laboratory Tests 10/17/19 13:10 ECHOCARDIOGRAM ECHOCARDIOGRAM <Conclusion> The left ventricular systolic function is normal and the ejection fraction is within normal range. The Ejection Fraction is 55-60%. There is normal LV segmental wall motion. DATE: 05/05/19 1044 STRESS TEST STRESS TEST Stress Echo INTERPRETATION Stress EKG Conclusion: Abnormal EKG with transfer SVT and inferolateral ST segment depression at peak stress. RESTING ECG Rhythm: Sinus Arrhythmias: None Repolarization: Normal STRESS ECG Rhythm: SVT Arrhythmias: SVT Moderately positive ST-Segment changes. ST-Sement Location: Inferior. Timing of ST-Segment Depression: Stress only ST-Segment Configuration: Horizontal ST-Segment Depression Amount: 2 mm Stress EKG shows changes suggestive of ischemia. RECOMMENDATIONS Further evaluation of arrhythmias with event recorder and initiation of Metoprolol 25mg bid. Preliminary Notification Critical Value: No <Conclusion> Good exercise capacity at 10.1 Mets achieved. Abnormal EKG response with SVT and inferolateral ST segment depression Normal resting and stress wall motion and EF with appropriate augmentation. Low to moderate risk study DATE: 08/16/17 1427 ASSESSMENT/PLAN ASSESSMENT/PLAN 1. Chest pain: EKG SR without acute changes. initial trop nml. Recent EF and WM nml 2. HTN urgency: BP good so far but recently noted with SBP in the 190s at home per pt. Presently controlled 3. HLP: currently off statin as her lipids have been very well controlled and has hx of statin intolerance 4. Hx of RF ablation r/t AVNRT 5. ILR in situ: [facility], interrogation revealed no significant arrhythmias. maintaining SR 6. Renal insufficiency: Cr at 1.4 7. Right Blurred vision/recent left facial tingling: per PCP Recommendations 1. Chest pain is likely from anxiety and uncontrolled HTN 2. Will restart home metoprolol would not be able to titrate with past issues with bradycardia and will place on hydralazine IV PRN. Recently start on PO hydralazine and will restart. Monitor rhythm and BP trend and will trend troponin. 3. Lipids and TSH and will check UA. Push PO fluids 4. Ischemic workup possibly as an outpt. 5. Will obtain head CT noncontrast. VITOR HUNTER MD 10/17/19 1732: CARDIAC CONSULT ASSESSMENT/PLAN ASSESSMENT/PLAN Pt. seen and examined. Agree with above CASTER OPERATOR note. DDx for chest pain could be spasm versus labile BP Agree with overnight monitoring. Will consider outpt ischemic eval Thanks JEET MENCHACA APRN Oct 17, 2019 14:24 VITOR HUNTER MD Oct 17, 2019 17:32
[2019-10-17] MEDS ORDERED: hydrALAZINE 20 MG/ML VIAL. IVP PRN (14:30)
--- NOTE | 2019-10-17 16:37 | RAD ---
CT brain without contrast. HISTORY: Vision changes CT scan the brain was done without contrast there is mucosal thickening in the posterior ethmoid air cells. Remaining sinuses are clear. A skull fracture is not identified. There is no intracranial hemorrhage or subdural hematoma. There is no mass or shift of the midline. Ventricles are normal in size. An acute CVA is not identified. IMPRESSION: 1. No intracranial hemorrhage or acute finding noted. RS Compliance Statement: One or more of the following individualized dose reduction techniques were utilized for this examination: 1. Automated exposure control 2. Adjustment of the mA and/or kV according to patient size 3. Use of iterative reconstruction technique Electronically signed by: Eric Vincent MD (10/17/2019 4:34 PM) [facility]
[2019-10-17 16:45] VITALS: BP 130/76
[2019-10-17] MEDS ORDERED: HYDR-2868 PO (18:25)
[2019-10-17] MEDS ORDERED: ACETAMINOPHEN 325 MG TABLET. PO PRN (18:45)
[2019-10-17 19:05] VITALS: BP 130/61
[2019-10-17] MEDS: hydrALAZINE 25 MG TABLET PO SCH (19:30)
[2019-10-17 20:33] LABS: BILIRUBIN,URINE NEGATIVE (NEG); CLARITY,URINE CLEAR; COLOR,URINE YELLOW; NITRITE,URINE NEGATIVE (NEG); PH,URINE 5.5 (<5.0-8.0); PROTEIN,URINE NEGATIVE (NEG-TRACE); UROBILINOGEN,URINE 0.2 mg/dL (0.2 mg/dL)
[2019-10-17 20:57] LABS: BACTERIA,URINE 0 /HPF (0-FEW); RBC,URINE 0 /HPF (0-2); SQUAMOUS EPITHELIAL CELL,UR FEW /LPF; WBC,URINE 0 /HPF (0-4)
[2019-10-17] MEDS ORDERED: METOPROLOL TART IMMED RELEASE 25 MG TABLET. PO SCH (21:00)
[2019-10-17] MEDS ORDERED: ALPRAZolam 0.5 MG TABLET PO ONE (21:00)
[2019-10-17] MEDS: METOPROLOL TART IMMED RELEASE 25 MG TABLET. PO SCH (21:38)
[2019-10-17 23:50] VITALS: BP 111/43
[2019-10-18 03:35] VITALS: BP 117/49
[2019-10-18 05:35] LABS: CHOLESTEROL/HDL RATIO 4.1
[2019-10-18 07:00] VITALS: BP 142/67
[2019-10-18] MEDS ORDERED: ASPIRIN ENTERIC COATED 81 MG TABLET.DR. PO SCH (08:00)
--- NOTE | 2019-10-18 08:15 | HP ---
ADMIT DATE: ADMISSION HISTORY AND PHYSICAL CHIEF COMPLAINT AND HISTORY OF PRESENT ILLNESS: This 68-year-old white female is well known to me in followup in the office. The patient has had some issues with higher blood pressures this week, starting on the Sunday prior to admission. She has been anxious about the same. She called the Cardiology office to give her some p.r.n. hydralazine to use for her blood pressures. On the day of admission, it was high again, but this time associated with a tight feeling chest pain. She was a little bit short of breath with it, but denies any nausea, lightheadedness, diaphoresis, etc. She was brought to the Emergency Room where troponins, EKG and initial workup were essentially negative. She was admitted for the same. PAST MEDICAL HISTORY: Remarkable for AFib, hyperlipidemia, and hypertension. PAST SURGICAL HISTORY: Remarkable for tonsillectomy, cardiac ablation. MEDICATIONS: Brought with the patient, listed on the computer and have been addressed. ALLERGIES: She has no known drug allergies. SOCIAL HISTORY: She is a lifetime nonsmoker, nondrinker, does not use drugs. She is single, lives at home alone. FAMILY HISTORY: Noncontributory. REVIEW OF SYSTEMS: As mentioned above. PHYSICAL EXAMINATION: GENERAL: She is a well-developed, well-nourished white female, in no acute distress. She does admit that low dose Xanax that Cardiology gave her last night did seem to help her overall symptomatology. HEAD, EYES, EARS, NOSE AND THROAT: Unremarkable. NECK: Supple, without adenopathy or thyromegaly. CHEST: Clear to auscultation and percussion. HEART: Regular rate and rhythm without S3, S4 or murmur. ABDOMEN: Soft, nontender, without hepatosplenomegaly or masses. EXTREMITIES: Without cyanosis, clubbing, or edema. NEUROLOGIC: She is intact. LABORATORY DATA: Initial labs including CBC, chem profile, troponins essentially negative other than a creatinine of 1.4 and an LDL of 135. CT head, EKG were unremarkable. IMPRESSION: Chest pain at this point would seem to be possibly due to some accelerated hypertension as well as anxiety overlay. PLAN: The patient has been admitted. Serial enzymes will be done. Cardiology has been consulted and the patient will be monitored, managed and treated appropriately. FRANCHESCA KRAMER MD DR: Bernarda JOB#: [id number] / [id number]
[2019-10-18] MEDS: hydrALAZINE 25 MG TABLET PO SCH (09:00)
[2019-10-18] MEDS: METOPROLOL TART IMMED RELEASE 25 MG TABLET. PO SCH (09:13)
[2019-10-18 11:15] VITALS: BP 96/48
[2019-10-18 15:00] VITALS: BP 127/59
[2019-10-18] MEDS ORDERED: METO25TA4 PO (16:09)
--- NOTE | 2019-10-18 16:50 | NUR ---
Discharge Note: RUCHI MARRUFO Discharge instructions and discharge home medications reviewed with Patient and a copy given. All questions have been answered and understanding verbalized. Discharge instructions and handouts were given: Discontinued IV lines without complications Patient discharged to home via wheelchair with staff and family.
--- NOTE | 2019-10-19 07:54 | PDOC ---
Provider Note Provider Note Late entry for 10/17/2009: S: No acute issues. No chest pain O: VSS GEN.: No apparent distress. Alert and oriented. HEENT: Head is normocephalic, atraumatic NECK: Supple. LUNGS: Clear to auscultation. HEART: RRR, S1, S2 present. Peripheral pulses intact ABDOMEN: Soft, nontender. Positive bowel sounds. EXTREMITIES: Without any cyanosis. NEUROLOGIC: Normal speech, normal tone PSYCHIATRIC: Normal affect, normal mood. SKIN: No ulcerations Labs/tele reviewed. Impression: 1. Atypical chest pain 2. Labile BP 3. SVT Recs 1. No evidence of angina, BP stable overnight, TELe unremarkable. Supportive care. Thanks Justicifation of Admission Dx: Justifications for Admission: Justification of Admission Dx: Yes Angina: Symp at Rest VITOR HUNTER MD Oct 19, 2019 07:54
--- NOTE | 2019-10-20 06:27 | EKG ---
[facility] [address] [place] [address] Test Date: 2019-10-17 Test Time: 13:09:12 Pat Name: RUCHI MARRUFO Department: Room: Gender: F Process Design Engineer: : [id number] Requested By: CATALINO GRANADOS Order Number: [id number] Reading MD: Measurements Intervals [place] Rate: 102 P: -4 SD: 188 QRS: 42 QRSD: 104 T: -25 QT: 328 QTc: 432 Interpretive Statements SINUS TACHYCARDIA ST & T ABNORMALITY, CONSIDER ANTEROLATERAL ISCHEMIA OR LEFT VENTRICULAR STRAIN INFEROLATERAL ISCHEMIA OR LEFT VENTRICULAR STRAIN ABNORMAL ECG RI6.02 No previous ECG available for comparison
== END 2019-10-18 16:52 | disposition home or self-care (01) | DRG 305 ==
LOC: ER 13:01 → 2 SOUTH 14:20
PROVIDERS: ADMIT Family Medicine; ATTEND Family Medicine
DX: I16.0 Hypertensive urgency (principal); I47.1 Supraventricular tachycardia; R07.89 Other chest pain; I10 Essential (primary) hypertension; E78.00 Pure hypercholesterolemia, unspecified; I48.91 Unspecified atrial fibrillation; E78.5 Hyperlipidemia, unspecified; N28.9 Disorder of kidney and ureter, unspecified; H53.8 Other visual disturbances; Z83.3 Family history of diabetes mellitus
CPT/HCPCS: 36415; 70450; 71045; 80048; 80061; 80076; 81001; 83690; 83880; 84443; 84484; 85025; 85610; 85730; 93005; 99285-25; G0378

== ENCOUNTER → 2019-11-17 | Outpatient (CLI) | payer BC, MEDICARE ==
[2019-10-18 15:00] VITALS: BP 127/59
[~2019-11-17] MED LIST changes: +HYDR-2868 PO; +REGADENOSON 0.4 MG/5 ML DISP.SYRIN. IV ONE
--- NOTE | 2019-11-17 16:09 | RAD ---
MR#: [id number] Date of Study: 11/17/2019 Ordering Physician: VITOR FLETCHER, Referring Physician: DEVEN YANEZ Tech: CHEYANNE Churchill APPROVED REPORT Test Type: Pharmacological Stress Nurse/Tech: Maribel Perez R.N. Test Indications: HTN, Chest discomfort Cardiac History: Hypertension, ablation Medications: See Electronic Medical Record Medical History: See Electronic Medical Record Resting ECG: S. [place] Resting Heart Rate: 54 bpm Resting Blood Pressure: 151/70mmHg Pretest Chest Pain: No chest pain Nurse/Tech Notes S1S2, lungs sound clear Consent: The procedure was explained to the patient in lay terms. Informed consent was witnessed. Ludwin eout was entered into TestObject. History and Stress Test performed by Maribel Perez R.N. Pharm. Details Pharmacologic stress testing was performed using 0.4mg per 5ml of regadenoson given intravenously ove r 7-10 seconds. Stress Symptoms No chest pain or symptoms. POST EXERCISE Reason for Termination: Infusion complete Target HR: 127 Max HR: 99 bpm Max Blood Pressure: 166/72mmHg Blood Pressure response to exercise: Normal blood pressure response during stress. Chest Pain: No. Arrhythmia: No. ST Change: Yes. INTERPRETATION Stress EKG Conclusion: No evidence of EKg changes with stress. Imaging Protocol IMAGE PROTOCOL: Rest Tc-99m/stress Tc-99m 1 day Rest: Stress: Viability: Radiopharm.Tc99m BfzbxmyscDe14f Sestamibi Gkmg68pOu 33mCi Duration 15min. 13min. Img Date 11/17/2019 11/17/2019 Inj-Img [id number]. 60min. Rest Admin Site:IV - Left AntecubitalAdministrator:CHEYANNE Churchill Stress Admin Site: IV - Left AntecubitalAdministrator: Heavenly Kwong RT (R)(N) STRESS DATA End Diast. Vol.70.0mlEnd Syst. Vol.22.0ml Myocardial Atzp229.0gEject. Gibwnjzp74.0% Stress Scores Regional WT1.00Summed WT2.00 Regional WM0.00Summed WM3.00 The rest and stress images show normal perfusion, normal contraction and thickening. LV Perf. Quant 17 Seg. SSS0.00 17 Seg. SRS0.00 17 Seg. SDS0.00 Stress Defect Extent (% LAD)0.00Rest Defect Extent (% LAD)0.00Rev. Defect Extent (% LAD)0.00 Stress Defect Extent (% LCX) 0.00Rest Defect Extent (% LCX)0.00Rev. Defect Extent (% LCX)0.00 Stress Defect Extent (% RCA)0.00Rest Defect Extent (% RCA)0.00Rev. Defect Extent (% RCA)0.00 Stress Defect Extent (% JOZEF)0.00Rest Defect Extent (% JOZEF)0.00Rev. Defect Extent (% JOZEF)0.00 Other Information Quality:Good Risk Assessment: Low Risk Conclusion 1. No evidence of stress-induced EKG changes 2. Normal perfusion on stress and rest 3. Normal ejection fraction at greater than 60% 4. Low risk study Signed by : Vitor Fletcher, Electronically Approved : 11/17/2019 16:09:08
== END | disposition home or self-care (01) ==
LOC: NM 12:26
PROVIDERS: ATTEND Internal Medicine Cardiovascular Disease
DX: I10 Essential (primary) hypertension (principal); R07.9 Chest pain, unspecified
CPT/HCPCS: 78452; 93017; A9500; J2785

== ENCOUNTER → 2020-03-19 | Outpatient (CLI) | payer BC ==
[~2020-03-19] MED LIST changes: +MULT-245 PO; -REGADENOSON 0.4 MG/5 ML DISP.SYRIN. IV ONE
== END ==
LOC: LAB 11:04
PROVIDERS: ATTEND Internal Medicine Cardiovascular Disease
DX: Z01.812 Encounter for preprocedural laboratory examination (principal); Z20.828 Contact with and (suspected) exposure to other viral communicable diseases
CPT/HCPCS: U0003

== ENCOUNTER 2020-03-20 20:13 | Emergency (ER) | payer BC ==
[~2020-03-20] VITALS: Ht 157.5 cm; Wt 72.0 kg
[~2020-03-20 20:13] MED LIST changes: -MULT-245 PO
[2020-03-20 21:24] LABS: BASO # 0.1 x10^3/uL (0.0-0.2); BASO % 1 % (0-3); EOS # 0.4 x10^3/uL (0.0-0.7); EOS % 4 % (0-3); HEMATOCRIT 41.4 % (36.0-47.0); HEMOGLOBIN 14.2 g/dL (12.0-15.5); LYMPH # 2.6 x10^3/uL (1.0-4.8); LYMPH % 27 % (24-48); MEAN CORPUSCULAR HEMOGLOBIN 30 pg (25-35); MEAN CORPUSCULAR HGB CONC 34 g/dL (31-37); MEAN CORPUSCULAR VOLUME 89 fL (79-100); MONO # 0.8 x10^3/uL (0.0-1.1); MONO % 8 % (0-9); NEUT # 5.9 x10^3/uL (1.8-7.7); NEUT % 61 % (31-73); PLATELET COUNT 264 x10^3/uL (140-400); RED BLOOD COUNT 4.67 x10^6/uL (3.50-5.40); RED CELL DISTRIBUTION WIDTH 13.7 % (11.5-14.5); WHITE BLOOD COUNT 9.7 x10^3/uL (4.0-11.0)
[2020-03-20 21:35] LABS: BILIRUBIN,URINE NEGATIVE (NEG); CLARITY,URINE CLEAR; COLOR,URINE YELLOW; NITRITE,URINE NEGATIVE (NEG); PH,URINE 6.5 (<5.0-8.0); PROTEIN,URINE NEGATIVE (NEG-TRACE); UROBILINOGEN,URINE 0.2 mg/dL (0.2 mg/dL)
[2020-03-20 21:49] LABS: BACTERIA,URINE FEW /HPF (0-FEW)
--- NOTE | 2020-03-20 22:19 | ED.ADGEN ---
Past Medical History Past Medical History: A-Fib, Arrhythmia, High Cholesterol, Hypertension Past Surgical History: Tonsillectomy, Other Additional Past Surgical Histo: CARDIAC ABLATION x2, LOOP RECORDER Smoking Status: Never Smoker Alcohol Use: None Drug Use: None General Adult EDM: Chief Complaint: HYPERTENSION HPI: HPI: Patient is a 69-year-old female who presents to the emergency room after having an episode of hypertension. Patient states that she was going to the bathroom and looked at her face and noticed that it was all red and hot. She relates that her blood pressure must be up so she checked it and it was 240/170s. She knows her heart rate was also in the 140s when this happened. She took a blood pressure pill prior to calling 911. She states that it did not kick in for a while and so she decided to call for an ambulance. She has not been taking her blood pressure medicine as she had not been having high blood pressure. 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 Patient is now feeling significantly better and no longer has any symptoms. She never had any chest pain, shortness of breath, decreased urination, headache, blurred vision. Review of Systems: Review of Systems: Complete ROS is negative unless otherwise documented in HPI Allergies: Allergies: Allergies Coded Allergies Type Severity Reaction Last Updated Verified No Known Drug Allergies 03/14/15 No Physical Exam: PE: General: Awake, alert, NAD. Well Nourished, well hydrated. Cooperative HEENT: Atraumatic, EOMI, PERRL, airway patent, moist oral mucosa Neck: Supple, trachea midline Respiratory: CTA bilaterally, normal effort, no wheezing/crackles CV: RRR, no murmur, cap refill <2 GI: Soft, nondistended, nontender, no masses MSK: No obvious deformities Skin: Warm, dry, intact Neuro: A&O x3, speech NL, sensory and motor grossly intact, no focal deficits Psych: Normal affect, normal mood, not suicidal or homicidal Current Patient Data: Labs: Laboratory Tests Test 03/20/20 21:08 03/20/20 21:19 White Blood Count 9.7 x10^3/uL (4.0-11.0) Red Blood Count 4.67 x10^6/uL (3.50-5.40) Hemoglobin 14.2 g/dL (12.0-15.5) Hematocrit 41.4 % (36.0-47.0) Mean Corpuscular Volume 89 fL (79-100) Mean Corpuscular Hemoglobin 30 pg (25-35) Mean Corpuscular Hemoglobin Concent 34 g/dL (31-37) Red Cell Distribution Width 13.7 % (11.5-14.5) Platelet Count 264 x10^3/uL (140-400) Neutrophils (%) (Auto) 61 % (31-73) Lymphocytes (%) (Auto) 27 % (24-48) Monocytes (%) (Auto) 8 % (0-9) Eosinophils (%) (Auto) 4 % (0-3) H Basophils (%) (Auto) 1 % (0-3) Neutrophils # (Auto) 5.9 x10^3/uL (1.8-7.7) Lymphocytes # (Auto) 2.6 x10^3/uL (1.0-4.8) Monocytes # (Auto) 0.8 x10^3/uL (0.0-1.1) Eosinophils # (Auto) 0.4 x10^3/uL (0.0-0.7) Basophils # (Auto) 0.1 x10^3/uL (0.0-0.2) Troponin I Quantitative < 0.017 ng/mL (0.000-0.055) Urine Collection Type Unknown Urine Color Yellow Urine Clarity Clear Urine pH 6.5 (<5.0-8.0) Urine Specific Harlan <=1.005 (1.000-1.030) Urine Protein Negative mg/dL (NEG-TRACE) Urine Glucose (UA) Negative mg/dL (NEG) Urine Ketones (Stick) Negative mg/dL (NEG) Urine Blood Negative (NEG) Urine Nitrite Negative (NEG) Urine Bilirubin Negative (NEG) Urine Urobilinogen Dipstick 0.2 mg/dL (0.2 mg/dL) Urine Leukocyte Esterase Negative (NEG) Urine RBC 1-2 /HPF (0-2) Urine WBC 1-4 /HPF (0-4) Urine Squamous Epithelial Cells Few /LPF Urine Bacteria Few /HPF (0-FEW) Laboratory Tests 03/20/20 21:08 Vital Signs: Vital Signs Date Time Temp Pulse Resp B/P (MAP) Pulse Ox O2 Delivery O2 Flow Rate FiO2 03/20/20 22:30 70 20 03/20/20 22:00 96 03/20/20 20:48 98.6 147/81 (103) Room Air 98.6 EKG: EKG: [] Heart Score: Risk Factors: Risk Factors: DM, Current or recent (<one month) smoker, HTN, HLP, family history of CAD, obesity. Risk Scores: Score 0 - 3: 2.5% MACE over next 6 weeks - Discharge Home Score 4 - 6: 20.3% MACE over next 6 weeks - Admit for Clinical Observation Score 7 - 10: 72.7% MACE over next 6 weeks - Early Invasive Strategies Radiology/Procedures: Radiology/Procedures: [] Course & Med Decision Making: Course & Med Decision Making Pertinent Labs and Imaging studies reviewed. (See chart for details) Patient is 69-year-old female presents to the emergency room after having episode of hypertension tachycardia which were resolved after her blood pressure medication. Patient is asymptomatic. Her blood pressure and heart rate are normal. Work-up was ordered to evaluate for endorgan damage and was normal. Patient is feeling much better and would like to go home. She has a follow-up appointment in 2 days. Patient's test results and vitals while in the ED were fully reviewed and discussed with the patient. Patient is stable and at this time does not need admission to the hospital. We have discussed strict return precautions and the importance of following up with their Primary Care Physician. Patient stated understanding and was given an opportunity to ask any questions. Patient is in agreement with plan. Dragon Disclaimer: Moe Disclaimer: This electronic medical record was generated, in whole or in part, using a voice recognition dictation system. Departure Departure Impression: Primary Impression: Hypertension Disposition: 01 DC HOME SELF CARE/HOMELESS Condition: STABLE Referrals: FRANCHESCA KRAMER MD (PCP) Patient Instructions: Hypertension REYNA YBARRA MD Mar 20, 2020 22:19
[2020-03-20 22:30] VITALS: BP 131/66
[2020-03-23] MEDS ORDERED: MULT-245 PO (07:59)
[2020-03-23] MEDS ORDERED: HYDR-2868 PO (07:59)
== END 2020-03-20 22:50 | disposition home or self-care (01) ==
LOC: ER 20:13
DX: I10 Essential (primary) hypertension (principal); I48.20 Chronic atrial fibrillation, unspecified; E78.00 Pure hypercholesterolemia, unspecified; Z90.89 Acquired absence of other organs; Z98.890 Other specified postprocedural states
CPT/HCPCS: 36415; 81001; 84484; 85025; 93005; 99284

== ENCOUNTER 2021-01-18 03:16 | Inpatient (IN) | payer MEDICARE, BC ==
[~2021-01-18] VITALS: Ht 157.5 cm; Wt 80.0 kg
[~2021-01-18 03:16] MED LIST changes: +MULT-245 PO
--- NOTE | 2021-01-18 03:58 | ED.ADGEN ---
Past Medical History Past Medical History: A-Fib, Arrhythmia, High Cholesterol, Hypertension Past Surgical History: Tonsillectomy, Other Additional Past Surgical Histo: CARDIAC ABLATION x2, LOOP RECORDER Smoking Status: Never Smoker Alcohol Use: None Drug Use: None General Adult HPI: HPI: Patient is a 70 year old female presenting POV from home for palpitations, hypertension, and chest pressure. Patient states that she had a headache and took her sumatriptan around 2 AM, about 1.5 hours prior to arrival, and notes about 5 to 10 minutes later started feeling palpitations like her heart was racing. Checked her heart rate was 103 at that time. Patient has a history of atrial fibrillation and takes 12.5 mg metoprolol twice daily. Had an ablation done in September but was started on triple after further paroxysmal episodes of atrial fibrillation. Patient says her hands feel clammy and she has some nausea when the symptoms started. States she otherwise been well. Is fully vaccinated against Covid since June. Review of Systems: Review of Systems: All other systems within normal limits except for as noted in the HPI Allergies: Allergies: Allergies Coded Allergies Type Severity Reaction Last Updated Verified No Known Drug Allergies 03/14/15 No Physical Exam: PE: Constitutional: Well developed, well nourished, no acute distress, non-toxic appearance. [] HENT: Normocephalic, atraumatic, bilateral external ears normal, nose normal. [] Eyes: PERRLA, conjunctiva normal, no discharge. [] Neck: No rigidity, supple, no stridor. [] Cardiovascular: Regular rate and rhythm, with intermittent irregular episode, brisk cap refill [] Lungs & Thorax: Non labored symmetric respirations, no tachypnea or respiratory distress [] Abdomen: Soft, nondistended. Skin: Warm, dry, no erythema, no rash. [] Back: Unremarkable Extremities: No deformities, range of motion grossly intact, no lower extremity edema [] Neurologic: Alert and oriented X 3, no focal deficits noted. [] Psychologic: Affect normal, judgement normal, mood normal. [] Current Patient Data: Labs: Laboratory Tests Test 01/18/21 04:24 White Blood Count 8.9 x10^3/uL (4.0-11.0) Red Blood Count 4.86 x10^6/uL (3.50-5.40) Hemoglobin 14.9 g/dL (12.0-15.5) Hematocrit 43.3 % (36.0-47.0) Mean Corpuscular Volume 89 fL (79-100) Mean Corpuscular Hemoglobin 31 pg (25-35) Mean Corpuscular Hemoglobin Concent 34 g/dL (31-37) Red Cell Distribution Width 13.4 % (11.5-14.5) Platelet Count 289 x10^3/uL (140-400) Neutrophils (%) (Auto) 57 % (31-73) Lymphocytes (%) (Auto) 32 % (24-48) Monocytes (%) (Auto) 7 % (0-9) Eosinophils (%) (Auto) 3 % (0-3) Basophils (%) (Auto) 1 % (0-3) Neutrophils # (Auto) 5.1 x10^3/uL (1.8-7.7) Lymphocytes # (Auto) 2.9 x10^3/uL (1.0-4.8) Monocytes # (Auto) 0.6 x10^3/uL (0.0-1.1) Eosinophils # (Auto) 0.3 x10^3/uL (0.0-0.7) Basophils # (Auto) 0.1 x10^3/uL (0.0-0.2) D-Dimer (Irina) 0.54 ug/mlFEU (0.00-0.50) H Sodium Level 139 mmol/L (136-145) Potassium Level 4.0 mmol/L (3.5-5.1) Chloride Level 102 mmol/L (98-107) Carbon Dioxide Level 26 mmol/L (21-32) Anion Gap 11 (6-14) Blood Urea Nitrogen 11 mg/dL (7-20) Creatinine 1.0 mg/dL (0.6-1.0) Estimated GFR (Cockcroft-Gault) 54.7 BUN/Creatinine Ratio 11 (6-20) Glucose Level 121 mg/dL (70-99) H Calcium Level 9.0 mg/dL (8.5-10.1) Phosphorus Level 3.3 mg/dL (2.6-4.7) Magnesium Level 2.1 mg/dL (1.8-2.4) Total Bilirubin 0.4 mg/dL (0.2-1.0) Aspartate Amino Transferase (AST) 16 U/L (15-37) Alanine Aminotransferase (ALT) 30 U/L (14-59) Alkaline Phosphatase 123 U/L (46-116) H Troponin I Quantitative 0.019 ng/mL (0.000-0.055) QX-Ahf-Q-Type Natriuretic Peptide 272 pg/mL (0-124) H Total Protein 7.5 g/dL (6.4-8.2) Albumin 4.0 g/dL (3.4-5.0) Albumin/Globulin Ratio 1.1 (1.0-1.7) Laboratory Tests 01/18/21 04:24 Laboratory Tests 01/18/21 04:24 Vital Signs: Vital Signs Date Time Temp Pulse Resp B/P (MAP) Pulse Ox O2 Delivery O2 Flow Rate FiO2 01/18/21 04:00 98.9 99 18 161/72 (101) 94 Room Air 98.9 EKG: EKG: Sinus rhythm, heart rate 95 bpm, no ST elevation or depression, no ectopy, T wave inversions in leads I, 2, 3, aVF, V6, upright T wave is different from previous in EKG dated 03-20-20 [] Heart Score: C/O Chest Pain: Yes HEART Score for Chest Pain: HEART Score for Chest Pain Response (Comments) Value History Moderately Suspicious 1 ECG Nonspecific Repolarizatio 1 Age > 65 2 Risk Factors 1 or 2 Risk Factors 1 Troponin < Normal Limit 0 Total 5 Risk Factors: Risk Factors: DM, Current or recent (<one month) smoker, HTN, HLP, family history of CAD, obesity. Risk Scores: Score 0 - 3: 2.5% MACE over next 6 weeks - Discharge Home Score 4 - 6: 20.3% MACE over next 6 weeks - Admit for Clinical Observation Score 7 - 10: 72.7% MACE over next 6 weeks - Early Invasive Strategies Radiology/Procedures: Radiology/Procedures: [facility] [address] [place] [address] IMAGING REPORT Signed PATIENT: RUCHI MARRUFO ACCOUNT: [id number] : 1950 LOCATION: ER AGE: 70 SEX: F EXAM STATUS: PRE ER ORD. PHYSICIAN: ARACELI VILLAVICENCIO MD REASON: afib PROCEDURE: CHEST AP ONLY XR CHEST 1V History: Reason: afib / Spl. Instructions: / History: Comparison: October 17, 2019 Findings: Mild left basilar linear atelectasis. No pleural effusion. No pneumothorax. Normal heart size. Impression: 1. Mild left basilar linear atelectasis. Electronically signed by: Eduardo Noland DO (01/18/2021 4:38 AM) [facility] DICTATED and SIGNED BY: EDUARDO NOLAND DO DATE: 01/18/21 [id number] [] Course & Med Decision Making: Course & Med Decision Making Pertinent Labs and Imaging studies reviewed. (See chart for details) Patient's blood pressure trending down. Admit for chest pressure observation and brief episodes of paroxysmal atrial fibrillation. She has various T wave changes on her EKG when compared to 1 year ago. D-dimer negative when adjusted for age [] Dragon Disclaimer: Dragon Disclaimer: This electronic medical record was generated, in whole or in part, using a voice recognition dictation system. Departure Departure Impression: Primary Impression: Chest pain Disposition: ADMITTED INPATIENT Admitting Physician: Franchesca Mckeon Condition: STABLE Referrals: FRANCHESCA MCKEON MD (PCP) ARACELI VILLAVICENCIO MD Jan 18, 2021 03:58
[2021-01-18 04:31] LABS: BASO # 0.1 x10^3/uL (0.0-0.2); BASO % 1 % (0-3); EOS # 0.3 x10^3/uL (0.0-0.7); EOS % 3 % (0-3); HEMATOCRIT 43.3 % (36.0-47.0); HEMOGLOBIN 14.9 g/dL (12.0-15.5); LYMPH # 2.9 x10^3/uL (1.0-4.8); LYMPH % 32 % (24-48); MEAN CORPUSCULAR HEMOGLOBIN 31 pg (25-35); MEAN CORPUSCULAR HGB CONC 34 g/dL (31-37); MEAN CORPUSCULAR VOLUME 89 fL (79-100); MONO # 0.6 x10^3/uL (0.0-1.1); MONO % 7 % (0-9); NEUT # 5.1 x10^3/uL (1.8-7.7); NEUT % 57 % (31-73); PLATELET COUNT 289 x10^3/uL (140-400); RED BLOOD COUNT 4.86 x10^6/uL (3.50-5.40); RED CELL DISTRIBUTION WIDTH 13.4 % (11.5-14.5); WHITE BLOOD COUNT 8.9 x10^3/uL (4.0-11.0)
--- NOTE | 2021-01-18 04:39 | EKG ---
[facility] [address] [place] [address] Test Date: 2021-01-18 Test Time: 03:25:40 Pat Name: RUCHI MARRUFO Department: Room: Gender: F Physical Therapy Manager: : 1950 Requested By: ARACELI VILLAVICENCIO Order Number: [id number] Reading MD: Louie Fletcher MD Measurements Intervals [place] Rate: 95 P: 12 [place]: 192 QRS: 56 QRSD: 112 T: 227 QT: 346 QTc: 438 Interpretive Statements SINUS RHYTHM IVCD NON-SPECIFIC ST/T CHANGES Electronically Signed On 01-18-2021 11:43:31 CDT by Louie Fletcher MD
[2021-01-18 04:41] LABS: GFR 54.7
--- NOTE | 2021-01-18 04:41 | RAD ---
XR CHEST 1V History: Reason: afib / Spl. Instructions: / History: Comparison: October 17, 2019 Findings: Mild left basilar linear atelectasis. No pleural effusion. No pneumothorax. Normal heart size. Impression: 1. Mild left basilar linear atelectasis. Electronically signed by: Eduardo Noland DO (01/18/2021 4:38 AM) [facility]
[2021-01-18 04:47] LABS: ALBUMIN/GLOBULIN RATIO 1.1 (1.0-1.7); MAGNESIUM 2.1 mg/dL (1.8-2.4); PHOSPHORUS 3.3 mg/dL (2.6-4.7); TOTAL BILIRUBIN 0.4 mg/dL (0.2-1.0); TOTAL PROTEIN 7.5 g/dL (6.4-8.2)
[2021-01-18] MEDS ORDERED: fentaNYL PF VIAL 100 MCG/2 ML VIAL IVP PRN (05:30)
[2021-01-18] MEDS ORDERED: ONDANSETRON PF 4 MG/2 ML VIAL. IVP PRN (05:30)
[2021-01-18] MEDS ORDERED: ACETAMINOPHEN 325 MG TABLET. PO PRN (05:30)
[2021-01-18 07:10] VITALS: BP 137/72
--- NOTE | 2021-01-18 09:11 | PDOC2 ---
APRIL MCDUFFIE X RAY EQUIPMENT MECHANIC 01/18/21 0911: CARDIAC CONSULT DATE OF CONSULT Date of Consult DATE: 01/18/21 TIME: 09:01 REASON FOR CONSULT Reason for Consult: Chest pressure PAFIB REFERRING PHYSICIAN Referring Physician: Dr. Alvarado SOURCE Source: Chart review, Patient HISTORY OF PRESENT ILLNESS HISTORY OF PRESENT ILLNESS This is a 70 yo female who presented secondary to palpitations, chest pressure. Patient reports she woke up in the middle of the night with LOVE and ringing in her ears. Is past, this has occurred in the setting of significantly elevated blood pressure. She check her pressure and it was 190/98. HR was 98. [place] some pressure in her central chest. She took 1/2 migraine tablet and laid back down. She continued to having ringing in the eat and rechecked her blood pressure. Was noted at 207/103 so she decided to come to the ED for further evaluation and treatment. Blood pressure is now controlled and she is feeling back to baseline. She reports compliance with medications. She reports these episode only occur at night. Does reports she snore significantly at HS, but has not had a sleep adeola dy. PAST MEDICAL HISTORY Past Medical History Cardiovascular: AFIB, Hyperlipidemia, Other (SVT- AVNRT) Pulmonary: No pertinent hx CENTRAL NERVOUS SYSTEM: Other (no pertinent hx) GI: No pertinent hx Heme/Onc: No pertinent hx Hepatobiliary: No pertinent hx Psych: No pertinent hx Musculoskeletal: Osteoarthritis, cervical stenosis Rheumatologic: No pertinent hx Infectious disease: No pertinent hx ENT: tinnitus Renal/: No pertinent hx Endocrine: No pertinent hx Dermatology: No pertinent history PAST SURGICAL HISTORY Past Surgical History RF ablation, [facility] loop recorder s/p explantation FAMILY HISTORY Family History: Diabetes SOCIAL HISTORY Social History Smoke: No ALCOHOL: none Drugs: None Lives: alone ALLERGIES ALLERGIES: Coded Allergies: No Known Drug Allergies (Unverified , 03/14/15) ROS Review of System 14 point ROS conducted with pertinent positives noted above in HPI PHYSICAL EXAM PHYSICAL EXAM General: Alert, Oriented X3, Cooperative, No acute distress HEENT: Atraumatic, Mucous membr. moist/pink Lungs: Clear to auscultation, Normal air movement Heart: RRR (tele SR) Abdomen: Soft, No tenderness Extremities: No cyanosis, No edema Skin: No breakdown, No significant lesion Neuro: Normal speech, Sensation intact Psych/Mental Status: Mental status NL, Mood NL MUSCULOSKELETAL: Osteoarthritic changes both hands VITALS/I&O VITALS/I&O: Vital Signs Date Time Temp Pulse Resp B/P (MAP) Pulse Ox O2 Delivery O2 Flow Rate FiO2 01/18/21 08:00 Room Air 01/18/21 07:10 98.4 78 16 137/72 (93) 98 98.4 01/18/21 05:30 96.0 LABS Lab: Laboratory Tests Test 01/18/21 04:24 01/18/21 05:40 White Blood Count 8.9 x10^3/uL (4.0-11.0) Red Blood Count 4.86 x10^6/uL (3.50-5.40) Hemoglobin 14.9 g/dL (12.0-15.5) Hematocrit 43.3 % (36.0-47.0) Mean Corpuscular Volume 89 fL (79-100) Mean Corpuscular Hemoglobin 31 pg (25-35) Mean Corpuscular Hemoglobin Concent 34 g/dL (31-37) Red Cell Distribution Width 13.4 % (11.5-14.5) Platelet Count 289 x10^3/uL (140-400) Neutrophils (%) (Auto) 57 % (31-73) Lymphocytes (%) (Auto) 32 % (24-48) Monocytes (%) (Auto) 7 % (0-9) Eosinophils (%) (Auto) 3 % (0-3) Basophils (%) (Auto) 1 % (0-3) Neutrophils # (Auto) 5.1 x10^3/uL (1.8-7.7) Lymphocytes # (Auto) 2.9 x10^3/uL (1.0-4.8) Monocytes # (Auto) 0.6 x10^3/uL (0.0-1.1) Eosinophils # (Auto) 0.3 x10^3/uL (0.0-0.7) Basophils # (Auto) 0.1 x10^3/uL (0.0-0.2) D-Dimer (Irina) 0.54 ug/mlFEU (0.00-0.50) H Sodium Level 139 mmol/L (136-145) Potassium Level 4.0 mmol/L (3.5-5.1) Chloride Level 102 mmol/L (98-107) Carbon Dioxide Level 26 mmol/L (21-32) Anion Gap 11 (6-14) Blood Urea Nitrogen 11 mg/dL (7-20) Creatinine 1.0 mg/dL (0.6-1.0) Estimated GFR (Cockcroft-Gault) 54.7 BUN/Creatinine Ratio 11 (6-20) Glucose Level 121 mg/dL (70-99) H Calcium Level 9.0 mg/dL (8.5-10.1) Phosphorus Level 3.3 mg/dL (2.6-4.7) Magnesium Level 2.1 mg/dL (1.8-2.4) Total Bilirubin 0.4 mg/dL (0.2-1.0) Aspartate Amino Transferase (AST) 16 U/L (15-37) Alanine Aminotransferase (ALT) 30 U/L (14-59) Alkaline Phosphatase 123 U/L (46-116) H Troponin I Quantitative 0.019 ng/mL (0.000-0.055) HX-Ydd-U-Type Natriuretic Peptide 272 pg/mL (0-124) H Total Protein 7.5 g/dL (6.4-8.2) Albumin 4.0 g/dL (3.4-5.0) Albumin/Globulin Ratio 1.1 (1.0-1.7) SARS-CoV-2 Antigen (Rapid) Negative (NEGATIVE) Laboratory Tests 01/18/21 04:24 Laboratory Tests 01/18/21 04:24 ECHOCARDIOGRAM ECHOCARDIOGRAM <Conclusion> The left ventricular systolic function is normal and the ejection fraction is within normal range. The Ejection Fraction is 55-60%. There is normal LV segmental wall motion. DATE: 05/05/19 1044 STRESS TEST STRESS TEST Conclusion 1. No evidence of stress-induced EKG changes 2. Normal perfusion on stress and rest 3. Normal ejection fraction at greater than 60% 4. Low risk study DATE: 11/17/19 1057 ASSESSMENT/PLAN ASSESSMENT/PLAN 1. Chest pain/pressure. AMI ruled out. Most probably secondary to hypertensive urgency 2. Hypertensive urgency; now controlled 3. Hx of AVNRT s/p RF ablation; presently SR 4. Hyperlipidemia Recommendation Resume metoprolol, hydralazine ASA therapy Home blood pressure monitoring Outpatient sleep study. Supportive care Okay to discharge from a CV standpoint and f/u in out office with Dr. Fletcher as scheduled VITOR FLETCHER MD 01/19/21 1546: CARDIAC CONSULT ASSESSMENT/PLAN ASSESSMENT/PLAN Late entry for 01/18/2021 Patient seen and examined. Agree with above nurse practitioner note. APRIL MCDUFFIE APRN Jan 18, 2021 09:11 VITOR FLETCHER MD Jan 19, 2021 15:46
[2021-01-18 11:00] VITALS: BP 119/51
[2021-01-18] MEDS ORDERED: HYDR-2868 PO (12:38)
--- NOTE | 2021-01-18 13:03 | HP ---
ADMIT DATE: 01/18/2021 ADMISSION HISTORY AND PHYSICAL CHIEF COMPLAINT AND HISTORY OF PRESENT ILLNESS: This 70-year-old female well known to me from followup in the office. The patient presented from home with palpitations, hypertension, chest pressure. She had developed in the middle of the night headache, took sumatriptan a couple hours prior to arrival around 2:00 a.m., felt her heart racing. She does have a history of atrial fibrillation and takes 12.5 mg of metoprolol twice a day. She was admitted with the diagnosis of chest pain. PAST MEDICAL HISTORY: Remarkable for the atrial fibrillation. She does have a history of intermittent accelerated hypertension. She has had hyperlipidemia, hypertension, history of tonsillectomy, prior cardiac ablation for atrial fibrillation. MEDICATIONS: Meds are brought with the patient listed on the computer have been addressed. ALLERGIES: She has no known drug allergies. SOCIAL HISTORY: She is single, nonsmoker, nondrinker, does not abuse drugs. FAMILY HISTORY: Noncontributory. REVIEW OF SYSTEMS: As mentioned above. PHYSICAL EXAMINATION: GENERAL: She is a well-developed, well-nourished white female in no acute distress, but a little bit anxious. VITAL SIGNS: Stable. She is afebrile. HEAD, EYES, EARS, NOSE AND THROAT: Unremarkable. NECK: Supple, without adenopathy or thyromegaly. CHEST: Clear to auscultation and percussion. HEART: Regular rate and rhythm without S3, S4 or murmur. ABDOMEN: Soft, nontender, without hepatosplenomegaly or masses. EXTREMITIES: Without cyanosis, clubbing, or edema. NEUROLOGIC: She is intact. IMPRESSION: Chest pain, accelerated hypertension, likely related to Imitrex and anxiety over the headache. PLAN: Cardiological consultation. We will follow expectantly. JULIANE DR: Bernarda TID: [id number]
--- NOTE | 2021-01-18 13:36 | NUR ---
Patient discharged at 1305 accompanied by the patient's niece, Huyen. Patient given education materials regarding chest pressure. Patient instructed to follow up with Dr. Fletcher for routine follow up, and follow up with Dr. Mckeon in two weeks. Patient suggested to discuss a sleep study with Dr. Mckeon. Dr. Fletcher continued the same home medications, but added hydralazine 25 mg qHS back on her list, educated patient. Patient left with clothing, ring, and cell phone.
--- NOTE | 2021-01-18 13:50 | DS ---
DATE OF DISCHARGE: 01/18/2021 PRIMARY DIAGNOSIS: Noncardiac chest pain. ADDITIONAL DIAGNOSES: Accelerated hypertension, history of atrial fibrillation, hyperlipidemia. CHIEF COMPLAINT AND HISTORY OF PRESENT ILLNESS: This 70-year-old white female admitted after being awoken by headache in the middle of the night with her blood pressure well over 200 and low 100s associated with chest pressure. SUMMARY OF STAY: The patient was admitted. Troponins were negative. Cardiology was consulted. They felt very comfortable because of prior workup and prior ablation along with echocardiogram and stress testing that she could be dismissed with outpatient followup and this was accomplished on the day of dismissal. DISPOSITION: The patient is discharged to home. Regular diet. Activity as tolerated. Office in the next couple of weeks. She is to resume her regular home medicines. FELICIANO/LIV DR: Bernarda TID: [id number]
== END 2021-01-18 13:05 | disposition home or self-care (01) | DRG 305 ==
LOC: ER 03:16 → 1 WEST ICU 08:09
PROVIDERS: ADMIT Family Medicine; ATTEND Family Medicine
DX: I16.0 Hypertensive urgency (principal); R07.89 Other chest pain; E78.00 Pure hypercholesterolemia, unspecified; E78.5 Hyperlipidemia, unspecified; F41.9 Anxiety disorder, unspecified; G43.909 Migraine, unspecified, not intractable, without status migrainosus; I10 Essential (primary) hypertension; I48.0 Paroxysmal atrial fibrillation; Z83.3 Family history of diabetes mellitus; M19.90 Unspecified osteoarthritis, unspecified site; M48.02 Spinal stenosis, cervical region; Z20.822 Contact with and (suspected) exposure to COVID-19; Z90.49 Acquired absence of other specified parts of digestive tract
CPT/HCPCS: 36415; 71045; 80053; 83735; 83880; 84100; 84484; 85025; 85379; 87426; 93005; U0003; U0005; 99285-25; G0378

== ENCOUNTER → 2021-06-23 | Outpatient (CLI) | payer BC, MEDICARE ==
--- NOTE | 2021-06-23 17:32 | CARD ---
MR#: [id number] Date of Study: 06/23/2021 Ordering Physician: VITOR HUNTER, Referring Physician: VITOR HUNTER, Tech: Sanya Hampton [facility] APPROVED REPORT EXAM: Two-dimensional and M-mode echocardiogram with Doppler and color Doppler. Other Information Quality : GoodHR: 60bpm Rhythm : NSR INDICATION Palpitations SVT Surgery/Intervention SVT ablation X 2. RISK FACTORS Hyperlipidemia 2D DIMENSIONS Left Atrium(2D)4.0 (1.6-4.0cm)IVSd0.9 (0.7-1.1cm) Aortic Root(2D)2.9 (2.0-3.7cm)LVDd4.6 (3.9-5.9cm) LVOT Diameter2.0 (1.8-2.4cm)PWd0.9 (0.7-1.1cm) LVDs2.7 (2.5-4.0cm)FS (%) 41.5 % SV70.2 mlLVEF(%)72.4 (>50%) Aortic Valve AoV Peak Michael.134.4cm/sAoV VTI29.7cm AO Peak GR.7.2mmHgLVOT Peak Michael.112.1cm/s AO Mean GR.4mmHgAVA (VMAX)2.51cm2 Mitral Valve MV E Lrvuyvgg26.3cm/sMV E Peak Gr.3mmHg MV DECEL JDPO314cmYW A Kitnzqnr44.9cm/s MV E Mean Gr.1mmHgE/A Ratio0.9 Pulmonary Valve PV Peak Augvsfgx67.5cm/s Tricuspid Valve TR P. Jozvodky147gb/sTR Peak Gr.26mmHg Pulmonary Vein S1 Fxzwgefm12.5cm/sD2 Guqxzyda14.4cm/s LEFT VENTRICLE The left ventricle is normal size. There is normal left ventricular wall thickness. The left ventricu lar systolic function is normal. The Ejection Fraction is 60-65% There is normal LV segmental wall mo tion. Transmitral Doppler flow pattern is Grade I-abnormal relaxation pattern. No left ventricle thro mbus noted on this study. There is no ventricular septal defect visualized. There is no left ventricu lar aneurysm. There is no mass noted in the left ventricle. RIGHT VENTRICLE The right ventricle is normal size. There is normal right ventricular wall thickness. The right ventr icular systolic function is normal. ATRIA The left atrium is mildly dilated. The right atrium size is normal. The interatrial septum is intact with no evidence for an atrial septal defect or patent foramen ovale as noted on 2-D or Doppler imagi ng. AORTIC VALVE The aortic valve is normal in structure and function. Doppler and Color Flow revealed no significant aortic regurgitation. There is no significant aortic valvular stenosis. There is no aortic valvular v egetation. MITRAL VALVE The mitral valve is normal in structure and function. There is no evidence of mitral valve prolapse. There is no mitral valve stenosis. Doppler and Color Flow revealed no mitral valve regurgitation note d. TRICUSPID VALVE The tricuspid valve is normal in structure and function. Doppler and Color Flow revealed trace to mil d tricuspid regurgitation. The PA pressure was estimated at 32 mmHg. There is no tricuspid valve prol apse or vegetation. There is no tricuspid valve stenosis. PULMONIC VALVE The pulmonary valve is normal in structure and function. Doppler and Color Flow revealed no pulmonic valvular regurgitation. There is no pulmonic valvular stenosis. GREAT VESSELS The aortic root is normal in size. The ascending aorta is normal in size. The pulmonary artery is nor mal. The IVC is normal in size and collapses >50% with inspiration. PERICARDIAL EFFUSION There is no pleural effusion. There is no evidence of significant pericardial effusion. Critical Notification Critical Value: No <Conclusion> The left ventricular systolic function is normal. The Ejection Fraction is 60-65% There is normal LV segmental wall motion. Transmitral Doppler flow pattern is Grade I-abnormal relaxation pattern. Trace to mild tricuspid regurgitation. The PA pressure was estimated at 32 mmHg. There is no evidence of significant pericardial effusion. Signed by : Zak Quarles, Electronically Approved : 06/23/2021 17:31:23
--- NOTE | 2021-06-24 08:07 | RAD ---
MR#: [id number] Date of Study: 06/23/2021 Ordering Physician: VITOR HUNTER, Referring Physician: VITOR HUNTER, Tech: Nakita Gallegos RVT, [facility] APPROVED REPORT Patient Location: OUT-PATIENT Laterality:Bilateral Indications Dizziness and Vertigo CVA/TIA: Doppler Spectral Velocity Analysis Right Left pCCA 99/15 cm/spCCA 110/22 cm/s mCCA 84/21 cm/smCCA 87/26 cm/s dCCA 89/20 cm/sdCCA 76/19 cm/s ECA 76/ cm/sECA 68/ cm/s pICA 102/26 cm/spICA 77/19 cm/s Jamison 84/22 cm/smICA 97/20 cm/s dICA 84/31 cm/sdICA 46/10 cm/s ICA/CCA 1.03ICA/CCA 0.88 Findings Grayscale images of extracranial carotid arteries bilaterally showed tortuous vessels with moderate a therosclerotic plaque involving the carotid bulbs bilaterally. Spectral waveform and color duplex an alysis showed normal velocities in bilateral common carotid, internal and external carotid arteries. The ICA to CCA ratios were within normal limits. The vertebral arteries showed antegrade flow with normal velocities. No significant carotid artery stenosis was noted. Critical Notification Critical Value: No <Conclusion> Bilateral carotid arterial duplex scan did not show any significant carotid artery stenosis Signed by : Zak Quarles, Electronically Approved : 06/24/2021 08:07:09
== END ==
LOC: ECHO 07:26
PROVIDERS: ATTEND Internal Medicine Cardiovascular Disease
DX: I36.1 Nonrheumatic tricuspid (valve) insufficiency (principal); I65.23 Occlusion and stenosis of bilateral carotid arteries; G45.9 Transient cerebral ischemic attack, unspecified; I47.1 Supraventricular tachycardia
CPT/HCPCS: 93306; 93880; C8929